=== PATIENT | male | born 1945 | race Caucasian/White ===

== ENCOUNTER 2018-12-21 13:12 | Inpatient (IN) ==
[2018-12-21] MEDS ORDERED: LASIX IV ONE (16:16)
[2018-12-21 16:49] LABS: BASO# 0.01 X1000 (0.0-0.2); BASO% 0.2 % (0.0-0.8); EOS# 0.01 X1000 (0.0-0.7); EOS% 0.2 % (0.0-10.0); HEMATOCRIT 26.5 % (42.0-52.0); IMM GRAN# 0.03 X1000 (0.0-0.04); IMM GRAN% 0.6 % (0.0-0.5); LYMPH# 0.96 X1000 (1.2-3.4); LYMPH% 18.7 % (20.5-51.1); MCH 27.9 PG (27-31); MCHC 30.2 g/dL (33-37); MCV 92.3 FL (81-99); MONO# 0.41 X1000 (0.11-0.59); MPV 10.4 FL (7.4-10.4); NEUT# 3.71 X1000 (1.4-6.5); NEUT% 72.3 % (42.2-75.2); PLT 143 X1000 (130-400); RBC 2.87 XMIL (4.7-6.1); RDW 15.5 % (11.5-14.5); WBC 5.13 X1000 (4.8-10.8)
[2018-12-21 17:12] LABS: INR 1.27; PROTIME 16.9 Seconds (11.0-16.0)
[2018-12-21 17:19] LABS: ALB/GLOB RATIO 1.1; ALBUMIN 3.5 g/dL (3.5-5.0); CALCIUM 9.6 mg/dL (8.8-10.2); MAGNESIUM 2.2 mg/dL (1.5-2.7); PHOSPHORUS 5.6 mg/dL (2.7-4.5); POTASSIUM 5.5 mmol/L (3.5-5.1); TOTAL BILIRUBIN 0.19 mg/dL (0.20-1.00); TOTAL PROTEIN 6.6 g/dL (6.3-8.3)
[2018-12-21] MEDS ORDERED: D50W SYRINGE ONE ×2 (17:35→17:36)
[2018-12-21] MEDS ORDERED: XYLOCAINE 2% JELLY UROJECT TOP ONE (17:42)
[2018-12-21] MEDS ORDERED: D50W SYRINGE IV ONE (18:12)
--- NOTE | 2018-12-21 18:55 | HISTORY AND PHYSICAL ---
HISTORY OF PRESENT ILLNESS: This is a 73-year-old patient of Dr. Shant Brock. Also followed by Dr. Paulina Sainz, developed lymphoma. Found lymphoma I think in his groin with lymph nodes in September 2017 and then started chemo in October 2017. In February, he had a PET scan and it looked like he was disease-free. In July they found recurrence came back in the groin. I think previous he had received chemotherapy and now he is on experimental therapy. He is on a trial study, but he has lymphoma in his abdomen and his pelvis and he has noticed over the last month or so slow increased swelling in his lower extremities up to his thigh and in his belly. He noticed that his scrotum is swelling and it has been harder for him to void and really could not pass his water in the last 12 hours or so. Presented to the emergency room. He denies fever, chills, gross hematochezia. No abdominal pain. He is not aware of any significant weight gain or loss, although he has had weight fluctuation. He is still eating by his report. PAST MEDICAL HISTORY: Other significant past medical history, hypercholesterolemia, hypertension. He has a history of atrial fibrillation and he has diabetes mellitus type 2. PAST SURGICAL HISTORY: Surgeries, I think he has had an appendectomy, and he has had his gallbladder out. He has had a colonoscopy. He had a laparoscopic cholecystectomy and left nephrectomy. 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 He also has some osteoarthritis. ALLERGIES: Allergic to antihistamines. Gave him trouble with urinary void. SOCIAL HISTORY: Negative for alcohol. Negative for tobacco. FAMILY HISTORY: He reports no history of heart, kidney disease, leukemia or lymphoma. REVIEW OF SYSTEMS: General: He does not report any weight gain or loss. He is not sure, he has been following his weight at the clinic and it has fluctuated, but he has not noticed any dramatic weight loss. In fact, he has noticed some weight gain that he thinks is related to fluid in the last couple visits. HEENT: No change in hearing or visual acuity. He is hard of hearing. I think he does wear a hearing aid. Neck: No complaints of neck pain. Lymphatic: No increased adenopathy in his neck, groin or axilla that he is aware of. But definitely increased lymph nodes in the groin. Increased swelling in his lower extremities and belly consistent with some anasarca. Respiratory: No increased work of breathing or dyspnea. Cardiovascular: No chest pain or tachy palpitation. Gastrointestinal and Genitourinary: No gross hematuria, dysuria. Musculoskeletal: No focal complaints. Neurologic: No focal complaints. Endocrinologic and Hematologic: No significant history. MEDICATIONS: At home, he is on fenofibrate 145 mg a day. Lasix 40 mg twice a day. Gabapentin 300 mg b.i.d. Glimepiride 4 mg b.i.d., Victoza 1.2 mg subcutaneous daily. Glucophage 850 mg a day. Lopressor 50 mg a day. Pravachol 40 mg a day, Xarelto 20 mg a day. Janumet XR 100/1000, one a day and Hytrin 5 mg daily. PHYSICAL EXAM: GENERAL: Well-developed, well-nourished, alert, oriented x3. VITAL SIGNS: Temperature is 97.3, pulse 80, respirations 18, blood pressure 145/72, O2 saturation 93%. EYES: Pupils are equal and round. Conjunctiva pink. NECK: CVP less than 6 cm. Supple. No cervical, supraclavicular adenopathy that I can appreciate. LUNGS: Clear in all lung colindres anterior, lateral and posterior. CARDIOVASCULAR: Regular rhythm and rate without murmur or S3. ABDOMEN: Soft, but it does feel like it has some fluid. Cannot tell if it is ascites. Do not really appreciate shifting fluid level. He has adenopathy and groin swelling in the scrotum, generalized swelling, lymphedema, really from his belly all the way down to his feet with some bullae in the lower extremities. Weight is 262 pounds, O2 saturation 93%. NEUROLOGICALLY: No focal deficits. LAB: White count 5130, hematocrit 26, hemoglobin is 8. Platelet count 143,000. Sodium 142, potassium 5.0, chloride 105, bicarb 22, BUN 91, creatinine 6.0. Blood sugar 42. Calculated osmolality 308, phosphorus 5.6, magnesium was 2.2. AST 16, ALT was 9, alkaline phosphatase was 26, albumin 3.5. ProTime 16.9, PTT is 41. ASSESSMENT AND PLAN: 1. Lymphoma. Recurrent lymphoma. He is on experimental therapy at [facility] and goes down every other week. Have increased anasarca, increased swelling and he has inability to void. Dr. James Payne is going to try to come in and put a Vee catheter in. We will put him on some Flomax. I will try and diurese him with some Lasix, give him 40 mg IV Lasix q.8 and see. We will watch his electrolytes closely including his magnesium and potassium. We will check a thyroid, B12 and folate and his cortisol level in the morning. 2. Inability to void. As above. Suspect this is from the swelling. I will put him on some Flomax and discuss with Dr. Payne if we need to add anything else. He is already on Hytrin. 3. Diabetes mellitus type 2. His sugar was low coming in, so right now, I am going to hold his Janumet and his metformin, and we will check pattern sugars. 4. History of hypercholesterolemia and hypertriglyceridemia. Continue his fenofibrate. 5. He has history of atrial fibrillation, put him on a monitor. It appears his rate is well controlled. We will continue the Xarelto 20 mg a day. 6. Regarding lymphoma, will see Dr. Sainz. Will inform of his admission and see if she has any suggestions. cc: Win Camarillo MD
[2018-12-21] MEDS: FLOMAX PO SCH (19:00)
[2018-12-21] MEDS ORDERED: ZOFRAN IV PRN (19:13)
[2018-12-21] MEDS ORDERED: TYLENOL PO PRN (19:13)
--- NOTE | 2018-12-21 19:23 | Diag Imaging Result Doc PS360 ---
EXAM: CHEST-2 VIEWS HISTORY: edema TECHNIQUE: Chest two views COMPARISON: 09/13/2013 FINDINGS: There is a right-sided portacatheter. No pneumothorax. There are small pleural effusions. Heart is enlarged. No consolidation. IMPRESSION: Cardiomegaly with small pleural effusions. Electronically signed by Zane Johnson 12/21/2018 7:21 PM
--- NOTE | 2018-12-21 19:26 | Diag Imaging Result Doc PS360 ---
EXAM: US SCROTUM HISTORY: scrotal swelling TECHNIQUE: Scrotal ultrasound COMPARISON: None. FINDINGS: There is a moderate to large right-sided hydrocele with a small left-sided hydrocele. Scrotal skin thickening is present. No testicular mass. Normal blood flow to the testicles. There is epididymal prominence bilaterally. IMPRESSION: Possible epididymitis. There are also hydroceles and scrotal skin thickening. Electronically signed by Zane Johnson 12/21/2018 7:24 PM
--- NOTE | 2018-12-21 19:39 | CONSULTATION ---
DATE OF CONSULTATION: 12/21/2018 REFERRING PHYSICIAN: Emergency room. HISTORY OF PRESENT ILLNESS: This 73-year-old male has a history of recurrent lymphoma. He states that over the last week he has had increasing swelling in his legs and over the last several days scrotum. He came to the emergency room and attempts were made to place a Vee catheter. These were not successful. The patient states he is on Hytrin that helps him void but no other medication for his prostate. He denies any surgery on his prostate. 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 He states he was told he had kidney stones in that kidney. He states he has never had other episodes of kidney stones. He has no problems with urinary tract infections. He has had no hematuria. PAST MEDICAL HISTORY: Lymphoma, hypertension, diabetes, elevated cholesterol. CURRENT MEDICATIONS: Documented on the chart. PAST SURGICAL HISTORY: Right nephrectomy, cholecystectomy, lower back surgery, wisdom teeth extraction, lymph node biopsy. SOCIAL HISTORY: He denies tobacco or alcohol use. He lives with his in [place]. ALLERGIES: He is allergic to Rosenda. REVIEW OF SYSTEMS: He states usually he is in good health. He states he recently started a new type of chemotherapy for his lymphoma in [place]. He denies any chest pains, heart disease, strokes, seizures, pulmonary, or bowel problems. PHYSICAL EXAMINATION: General: A mildly obese, age apparent, normally developed, white male, oriented in all ways and cooperative. He is somewhat hard of hearing. HEENT: Normal for age. Lungs: Clear. Cardiovascular: Regular rate and rhythm. Abdomen: Obese, soft. There is protuberance in the suprapubic area when palpated that causes increased discomfort and feelings of needing to void. : Uncircumcised male with phimosis and significant penile and scrotal edema. The testes are not palpable. No inguinal hernias. Rectal: Deferred. Extremities: +2 [address] the [address] up into the thighs. No cyanosis or clubbing. Neurologic: No focal deficits. LABORATORY EVALUATION: He has a white count of 5.13, hemoglobin 8.0, hematocrit 26.5 and platelets are 143,000. Serum electrolytes have a sodium 142, potassium 5.5, chloride 105, bicarb 22, BUN 91, creatinine 6.0. IMPRESSION: 1. Urinary retention. 2. Enlarged prostate. 3. Lymphoma. PLAN: 1. The patient was prepped and draped sterilely for Vee catheterization. 20 mL of 2% viscous lidocaine was placed in the patient's urethra. 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 The viscous lidocaine was held in place for 5 minutes. The tip of the syringe that held the lubricant was used to push through the fossa navicularis stricture. The tip of the 18-Dutch Coude catheter was then used to completely dilate the strictured area and with some pushing was able to push the catheter through the urethra, prostate and into the bladder. After the catheter went in the bladder, immediate return of clear urine returned. 10 mL of sterile water were placed in the Vee's balloon. Some of the urine was sent for urinalysis. The Vee was placed to gravity drain. He tolerated this procedure well. 2. Will add Flomax to his medication regimen. Thank you for this consultation. cc: MD Arsh Mejia MD
[2018-12-21 20:01] LABS: URINE SOURCE CATH
[2018-12-21 20:10] LABS: BILIRUBIN URINE NEGATIVE (NEGATIVE); BLOOD URINE TRACE (NEGATIVE); COLOR YELLOW; GLUCOSE URINE NEGATIVE (NEGATIVE); KETONE URINE NEGATIVE (NEGATIVE); LEUKOCYTES URINE NEGATIVE (NEGATIVE); NITRITE URINE NEGATIVE (NEGATIVE); PROTEIN URINE NEGATIVE (NEGATIVE); SP GRAVITY URINE 1.006; TURBIDITY URINE CLEAR (CLEAR); UROBILINOGEN URINE NORMAL (NORMAL)
[2018-12-21 20:12] LABS: UR EPITHELIAL CELLS <10 /HPF (<10); URINE BACTERIA NEGATIVE /HPF; URINE RBC <10 /HPF (<10); URINE WBC <10 /HPF (<10)
[2018-12-21] MEDS: LASIX IV SCH (20:36)
[2018-12-21] MEDS: NS 1,000 ML IV SCH (20:46)
[2018-12-21] MEDS: NEURONTIN PO SCH (21:47)
--- NOTE | 2018-12-21 21:58 | PROVIDER DOCUMENTATION ---
This chart was entered by Mindy Solis Scribe, acting as scribe for Bonifacio Lucero MD. HPI-Male Problem - General Chief Complaint: Male Stated Complaint: FLUID BUILD UP Time Seen by Provider: 12/21/18 15:38 Source: patient Allergies/Adverse Reactions: Patient Allergies Allergy/AdvReac Type Severity Reaction Status Date / Time fexofenadine HCl * Allergy Mild RENAL Verified 12/21/18 17:06 [From Rosenda] FAILURE Home Medications: Home Medication List Medication Instructions Recorded Confirmed Last Taken Type Gabapentin 300 mg PO BID 09/18/17 12/21/18 08/03/18 08:30 History Glimepiride 4 mg PO BID 09/18/17 12/21/18 08/03/18 08:30 History Liraglutide [Victoza] 1.2 mg SUBQ DAILY 09/18/17 12/21/18 08/02/18 19:00 History Metformin [Glucophage] 850 mg PO DAILY 09/18/17 12/21/18 08/02/18 19:00 History Metoprolol [Lopressor] 50 mg PO DAILY 09/18/17 12/21/18 08/03/18 08:30 History PRAVAstatin [Pravachol] 40 mg PO DAILY 09/18/17 12/21/18 08/02/18 19:00 History Rivaroxaban [Xarelto] 20 mg PO DAILY 09/18/17 12/21/18 08/02/18 19:00 History Sitagliptin Phos/Metformin HCl 1 each PO DAILY 09/18/17 12/21/18 08/03/18 08:30 History [Janumet Xr 100-1,000 mg Tablet] Terazosin [Hytrin] 5 mg PO DAILY 09/18/17 12/21/18 08/02/18 19:00 History Fenofibrate Nanocrystallized 145 mg PO DAILY 12/21/18 12/21/18 Unknown History [Fenofibrate] Furosemide [Lasix] 40 mg PO BID 12/21/18 12/21/18 Unknown History - History of Present Illness-Male Nature of Presenting Problem: 73yom with hx of lymphoma, diabetes, and renal disease c/o scrotal swelling, difficulty urinating since yesterday and weight gain in the past two weeks. He reports he has completed chemotherapy and is now in a clinical trial for metastatic lymphoma. He reports his usual weight is around 236lbs-238lbs. He reports he currently weighs 262lbs. The patient's family members are at bedside. Location of Complaint: reports: scrotal Radiation: reports: none Quality of Pain: reports: pressure Severity in ED: reports: mild Onset/Duration: reports: 24 hours ago (yesterday), other (2 weeks) Timing: reports: still present, constant Context/Activities at Onset: reports: none Urinary Symptoms: reports: other (difficulty urinating) Associated Symptoms: reports: other (scrotal swelling, difficulty urinating). denies: fever/chills Similar Symptoms Previously?: No Recently seen or treated by another doctor?: No Review of Systems - Adult - REVIEW OF SYSTEMS - ADULT Constitutional: denies: chills, fever Eyes: denies: discharge, dry eyes Ears, Nose, Mouth & Throat: denies: ear discharge, ear pain Cardiovascular: denies: chest pain, palpitations Respiratory: denies: cough, shortness of breath Gastrointestinal: denies: abdominal pain, diarrhea, nausea, vomiting Genitourinary: reports: other (scrotal swelling, difficulty urinating). denies : hematuria Musculoskeletal: denies: back pain, muscle aches, muscle weakness Integumentary: reports: no symptoms reported Neurological: denies: dizziness/vertigo, headache/migraines Psychiatric: reports: no symptoms reported Endocrine: reports: no symptoms reported Hematologic/Lymphatic: reports: no symptoms reported Allergic/Immunologic: reports: no symptoms reported All Other Systems: Reviewed and Negative Past History - Adult - PAST MEDICAL HISTORY-ADULT Review of Records: reports: Old Records Reviewed, Nursing Assessment Review, Medications Reviewed Cardiovascular: reports: A-Fib, HTN Respiratory: reports: sleep apnea Genitourinary: reports: other (enlarged prostate) Endocrine/Immune: reports: Diabetes, Lymphoma Other Conditions: reports: cataract/glaucoma, other (DVT) - PRIOR SURGERIES/PROCEDURES Surgical/Procedure History: reports: cholecystectomy, back/neck (back), other ( L nephrectomy, cataract removal) - IMMUNIZATION STATUS Childhood Immunizations: See Nurse Assessment Flu Vaccine: See Nurse Assessment - FAMILY HISTORY Family History: reviewed, not pertinent - SOCIAL HISTORY Smoking: non-smoker Substance Use: denies Living Situation: family Physical Exam-General - PHYSICAL EXAM-ADULT Initial Vital Signs Reviewed: Yes - CONSTITUTIONAL General Appearance: alert, no apparent distress, other (pt appears pale) - EYES Eyes: PERRL/EOMI, pink conjunctivae - NECK Neck: non-tender, supple - RESPIRATORY Respiratory: chest non-tender, lungs clear, normal breath sounds, no pleuratic chest pain, no respiratory distress, no accessory muscle use - CARDIOVASCULAR Cardiovascular: regular rate, rhythm, no murmur - GASTROINTESTINAL (ABDOMEN) Abdominal Exam: soft, distended, other (tymphanic) - GENITOURINARY Male Genitalia: scrotal swelling (significant). negative: erythema - MUSCULOSKELETAL Extremity: non-tender, pedal edema (2+), other (2+ edema extends from bilateral lower extremities to hips) - SKIN Integumentary: warm/dry, pallor - NEUROLOGIC Neurologic: grossly normal, no motor/sensory deficits - PSYCHIATRIC Psych/Mental Status: normal mood/affect, normal thought content, normal thought process, oriented x 3 Progress - PLAN OF CARE/RESULTS Progress/Plan/Lab Results: Vital Signs - 8 hr 12/21/18 17:00 12/21/18 17:02 12/21/18 18:01 Pulse Rate 83 72 Respiratory Rate 18 19 Blood Pressure 145/72 149/73 O2 Sat by Pulse Oximetry 92 L 93 L 90 L Laboratory Results - last 24 hr 12/21/18 12/21/18 12/21/18 16:29 16:29 16:29 WBC 5.13 RBC 2.87 L Hgb 8.0 L Hct 26.5 L MCV 92.3 MCH 27.9 MCHC 30.2 L RDW Std Deviation 15.5 H Plt Count 143 MPV 10.4 Immature Gran % (Auto) 0.6 H Neut % (Auto) 72.3 Lymph % (Auto) 18.7 L [place] % (Auto) 8.0 Eos % (Auto) 0.2 Baso % (Auto) 0.2 Immature Gran # (Auto) 0.03 Neut # (Auto) 3.71 Lymph # (Auto) 0.96 L [place] # (Auto) 0.41 Eos # (Auto) 0.01 Baso # (Auto) 0.01 PT INR PTT (Actin FS) 41.9 H Sodium 142 Potassium 5.5 H Chloride 105 Carbon Dioxide 22 L Anion Gap 15 BUN 91 H Creatinine 6.0 H Estimated GFR/1.73 m2 9 BUN/Creatinine Ratio 15 Glucose 42 L POC Glucose Calculated Osmolality 308 Calcium 9.6 Phosphorus 5.6 H Magnesium 2.2 Total Bilirubin 0.19 L AST 16 ALT 9 L Alkaline Phosphatase 26 L Total Protein 6.6 Albumin 3.5 Globulin 3.1 Albumin/Globulin Ratio 1.1 Urine Source Urine Color Urine Turbidity Urine pH Ur Specific [place] Urine Protein Ur Glucose (Stick) Ur Ketones (Stick) Urine Blood Urine Nitrite Urine Bilirubin Urobilinogen Dipstick Urine Leukocytes Urine WBC (Auto) Urine RBC (Auto) U Epithel Cells (Auto) Urine Bacteria (Auto) 12/21/18 12/21/18 12/21/18 16:29 17:34 18:10 WBC RBC Hgb Hct MCV MCH MCHC RDW Std Deviation Plt Count MPV Immature Gran % (Auto) Neut % (Auto) Lymph % (Auto) [place] % (Auto) Eos % (Auto) Baso % (Auto) Immature Gran # (Auto) Neut # (Auto) Lymph # (Auto) [place] # (Auto) Eos # (Auto) Baso # (Auto) PT 16.9 H INR 1.27 PTT (Actin FS) Sodium Potassium Chloride Carbon Dioxide Anion Gap BUN Creatinine Estimated GFR/1.73 m2 BUN/Creatinine Ratio Glucose POC Glucose 33 L Calculated Osmolality Calcium Phosphorus Magnesium Total Bilirubin AST ALT Alkaline Phosphatase Total Protein Albumin Globulin Albumin/Globulin Ratio Urine Source CATH Urine Color YELLOW Urine Turbidity CLEAR Urine pH 5.0 Ur Specific [place] 1.006 Urine Protein NEGATIVE Ur Glucose (Stick) NEGATIVE Ur Ketones (Stick) NEGATIVE Urine Blood TRACE A Urine Nitrite NEGATIVE Urine Bilirubin NEGATIVE Urobilinogen Dipstick NORMAL Urine Leukocytes NEGATIVE Urine WBC (Auto) <10 Urine RBC (Auto) <10 U Epithel Cells (Auto) <10 Urine Bacteria (Auto) NEGATIVE 12/21/18 18:33 WBC RBC Hgb Hct MCV MCH MCHC RDW Std Deviation Plt Count MPV Immature Gran % (Auto) Neut % (Auto) Lymph % (Auto) [place] % (Auto) Eos % (Auto) Baso % (Auto) Immature Gran # (Auto) Neut # (Auto) Lymph # (Auto) [place] # (Auto) Eos # (Auto) Baso # (Auto) PT INR PTT (Actin FS) Sodium Potassium Chloride Carbon Dioxide Anion Gap BUN Creatinine Estimated GFR/1.73 m2 BUN/Creatinine Ratio Glucose POC Glucose 149 H D Calculated Osmolality Calcium Phosphorus Magnesium Total Bilirubin AST ALT Alkaline Phosphatase Total Protein Albumin Globulin Albumin/Globulin Ratio Urine Source Urine Color Urine Turbidity Urine pH Ur Specific [place] Urine Protein Ur Glucose (Stick) Ur Ketones (Stick) Urine Blood Urine Nitrite Urine Bilirubin Urobilinogen Dipstick Urine Leukocytes Urine WBC (Auto) Urine RBC (Auto) U Epithel Cells (Auto) Urine Bacteria (Auto) Orders Category Date Time [facility] Routine AdmDCTranf 12/21/18 19:13 Active Activity - Up with Assistance ORDERED Care 12/21/18 19:13 Active Apply Mechanical Device [QM] ORDERED Care 12/21/18 19:13 Active Bladder Scan and Record Result ORDERED Care 12/21/18 15:57 Active DVT/PE Risk Assess/Protocol [QM] ORDERED Care 12/21/18 19:13 Active FSBS/Accucheck Result AC + HS Care 12/21/18 19:13 Active Vee Cath Insertion ORDERED Care 12/21/18 16:16 Active Intake and Output-Strict ORDERED Care 12/21/18 19:13 Active Nursing- MD Consult Request ROUTINE Care 12/21/18 19:13 Active Resuscitation Status Routine Care 12/21/18 17:37 Ordered Saline Loc NOW Care 12/21/18 15:57 Active Vital Signs Order Q 8-HR ASSESS Care 12/21/18 19:13 Active Z-Document. for Tele Applied ORDERED Care 12/21/18 19:13 Active Physician/Provider Consults Routine Cons 12/21/18 19:13 Ordered Physician/Provider Consults Routine Cons 12/21/18 19:13 Ordered Diabetic Diet Diet 12/21/18 19:13 Active CHEST-2 VIEWS [RAD] Stat Exams 12/21/18 16:15 Completed US SCROTUM [US] Stat Exams 12/21/18 15:57 Completed CBC WITH DIFF [HEME] Routine Lab 12/22/18 06:00 Ordered CBC WITH ELECTRONIC DIFF [HEME] Stat Lab 12/21/18 16:29 Completed CK PROFILE [SP CHEM] Routine Lab 12/22/18 06:00 Ordered COMPREHENSIVE METABOLIC PANEL [CHEM] Routine Lab 12/22/18 06:00 Ordered COMPREHENSIVE METABOLIC PANEL [CHEM] Stat Lab 12/21/18 16:29 Completed MAGNESIUM [CHEM] Stat Lab 12/21/18 16:29 Completed PHOSPHORUS [CHEM] Stat Lab 12/21/18 16:29 Completed PROTIME WITH INR [COAG] Routine Lab 12/22/18 06:00 Ordered PROTIME WITH INR [COAG] Stat Lab 12/21/18 16:29 Completed PTT [COAG] Routine Lab 12/22/18 06:00 Ordered PTT [COAG] Stat Lab 12/21/18 16:29 Completed TROPONIN T Routine Lab 12/21/18 20:07 Completed TSH Routine Lab 12/22/18 06:00 Ordered UA NIMS W/REFLEX CULT [URINALYSIS] Routine Lab 12/21/18 18:10 Completed 0.9% Sodium Chloride Inj [Ns] 1,000 ml Med 12/21/18 19:13 Active IV 25 mls/hr Acetaminophen [Tylenol] Med 12/21/18 19:13 Active 650 mg PO Q6H PRN PRN Dextrose 50% Syringe [D50w Syringe] Med 12/21/18 18:12 Discontinued 100 ml IV NOW ONE Dextrose 50% Syringe [D50w Syringe] Med 12/21/18 17:35 Discontinued 50 ml .ROUTE .STK-MED ONE Dextrose 50% Syringe [D50w Syringe] Med 12/21/18 17:36 Discontinued 50 ml .ROUTE .STK-MED ONE Fenofibrate [Tricor] Med 12/22/18 09:00 Active 145 mg PO DAILY Furosemide [Lasix] Med 12/21/18 19:13 Active 40 mg IV Q8H Furosemide [Lasix] Med 12/21/18 16:16 Discontinued 80 mg IV NOW ONE Gabapentin [Neurontin] Med 12/21/18 21:00 Active 300 mg PO BID Lidocaine 2% Jelly Appl [Xylocaine 2% Jelly Uroject] Med 12/21/18 17:42 Discontinued 1 ml TOP NOW ONE Metoprolol [Lopressor] Med 12/22/18 09:00 Active 50 mg PO DAILY Omeprazole [Prilosec] Med 12/22/18 09:00 Active 40 mg PO DAILY Ondansetron [Zofran] Med 12/21/18 19:13 Active 4 mg IV Q4H PRN PRN PRAVAstatin [Pravachol] Med 12/22/18 09:00 Active 40 mg PO DAILY Rivaroxaban [Xarelto] Med 12/22/18 09:00 Active 20 mg PO DAILY Terazosin [Hytrin] Med 12/22/18 09:00 Active 5 mg PO DAILY Telemetry [OM.EQ] Routine Oth 12/21/18 19:13 Active EKG [EKG] Stat Ther 12/21/18 19:13 Ordered Transfer/Admit Order [TRANSFER] Routine Transfer 12/21/18 17:36 Completed A/P: Edema, ascites. will admit for fluid dieresis. Pt has hx of metastatic lymphoma. Result Diagrams: 12/21/18 16:29 12/21/18 16:29 - CONSULTS/PCP/HOSPITALIST Notification #1 *Consult/PCP/Hospitalist*: Dr. Payne, Urology Time Discussed: 17:05 Consult Disposition: Will see in ED #2 Consult: Dr. Camarillo, Hospitalist Time Discussed: 17:06 Consult Disposition: Will see in ED Departure - Departure Date of Disposition Decision: 12/21/18 Time of Disposition Decision: 21:57 DIAGNOSIS: Ascites Disposition: ADMITTED INPATIENT 09 Certified Medical Emergency: Emergent Condition: Stable - Critical Care Note This patient required my direct & personal management of CC.: No Attestation - Physician/ PRICILLA Attestation Patient care was provided by Advanced Practice Provider:: No The physician spent face to face time with patient:: Yes Advanced Practice Provider documentation review:: Supervising physician onsite and consulted in the evaluation and care of this patient. The physician did have a face to face encounter with the patient. This chart was documented by the indicated scribe, (Mindy Solis, Katinaibmely) and accurately reflects the services I performed and decisions made by me, Bonifacio Lucero MD, as attested by the provider's signature.
[2018-12-22] MEDS: LASIX IV SCH (04:20)
[2018-12-22 06:19] LABS: INR 1.18; PROTIME 15.9 Seconds (11.0-16.0)
[2018-12-22 06:20] LABS: PTT 40.1 Seconds (22.3-41.8)
[2018-12-22 06:27] LABS: BASO# 0.01 X1000 (0.0-0.2); BASO% 0.2 % (0.0-0.8); EOS# 0.01 X1000 (0.0-0.7); EOS% 0.2 % (0.0-10.0); HEMATOCRIT 24.5 % (42.0-52.0); HEMOGLOBIN 7.4 g/dL (14.0-18.0); LYMPH# 0.53 X1000 (1.2-3.4); LYMPH% 11.1 % (20.5-51.1); MCH 28.1 PG (27-31); MCHC 30.2 g/dL (33-37); MCV 93.2 FL (81-99); MONO# 0.37 X1000 (0.11-0.59); MONO% 7.8 % (1.7-9.3); NEUT# 3.84 X1000 (1.4-6.5); NEUT% 80.7 % (42.2-75.2); PLT 147 X1000 (130-400); RBC 2.63 XMIL (4.7-6.1); RDW 15.6 % (11.5-14.5); WBC 4.76 X1000 (4.8-10.8)
[2018-12-22 06:51] LABS: ALB/GLOB RATIO 1.5; ALBUMIN 3.5 g/dL (3.5-5.0); CALCIUM 9.6 mg/dL (8.8-10.2); CREATININE 6.3 mg/dL (0.7-1.2); POTASSIUM 5.6 mmol/L (3.5-5.1); TOTAL BILIRUBIN 0.21 mg/dL (0.20-1.00); TOTAL PROTEIN 5.9 g/dL (6.3-8.3)
[2018-12-22] MEDS ORDERED: XARELTO PO SCH (09:00)
[2018-12-22] MEDS ORDERED: FLOMAX PO SCH (09:00)
[2018-12-22] MEDS ORDERED: TRICOR PO SCH (09:00)
[2018-12-22] MEDS: FLOMAX PO SCH (09:09)
[2018-12-22] MEDS: LOPRESSOR PO SCH (09:10)
[2018-12-22] MEDS: HYTRIN PO SCH (09:10)
[2018-12-22] MEDS: PRILOSEC PO SCH (09:10)
[2018-12-22] MEDS: NEURONTIN PO SCH ×2 (09:10→20:34)
[2018-12-22] MEDS: PRAVACHOL PO SCH (09:10)
[2018-12-22] MEDS ORDERED: LASIX 200 MG in NS 25 ML IV SCH (11:00)
[2018-12-22] MEDS ORDERED: LASIX IV SCH (11:00)
--- NOTE | 2018-12-22 11:30 | PROGRESS NOTE ---
DATE: 12/22/2018 HISTORY: Mr. Manuel Good was admitted to [facility] with acute renal failure. His BUN and creatinine were 91 and 6.0 on admission. His BUN and creatinine were 89 and 6.3 this morning. He has had improved urine output after placement of a Vee catheter. He is currently undergoing clinical trials at [facility] for his underlying lymphoma. They have given him Lasix throughout the night and he reports that he has less swelling in his abdomen. He still has significant edema and scrotal edema. The blood pressure is stable. He denies any chest pain, palpitations, or anginal equivalents. PHYSICAL EXAMINATION: Vital Signs: He is afebrile. Pulse 67, respirations 20, BP 120/53. CV: Regular rate and rhythm. Lungs: Faint crackles in the bases bilaterally. Abdomen: Soft, nontender, with active bowel sounds. : He has significant scrotal edema. Extremities: He has 3+ pitting edema in the lower extremities bilaterally. ASSESSMENT AND PLAN: 1. Acute renal failure. He had not been able to void in [address] Payne was able to put in a catheter with some urine output. His renal function has actually declined since placement of the Vee. Given the worsening renal function, mild acidosis, and hyperkalemia, I believe that potentially he would benefit from dialysis. I have consulted Dr. Javier. I spoke to Dr. Javier this morning. Dr. Javier is going to arrange for a noncontrasted CT scan of the abdomen and pelvis to make sure there is no obvious obstruction of the kidneys due to lymphoma, give him high-dose Lasix, and if there is no improvement, will certainly consider the possibility of dialysis. 2. Hypertension. His blood pressure is stable. We will continue his current regimen of medication. cc: Arsh Brock MD
--- NOTE | 2018-12-22 13:44 | Diag Imaging Result Doc PS360 ---
EXAM: CT ABDOMEN/PELVIS W/O CONTRAST - 12/22/2018 HISTORY: decreased renal function TECHNIQUE: CT abdomen/pelvis without contrast. No contrast administered per request of the referring provider. COMPARISON: 02/19/2012 FINDINGS: There are bilateral pleural effusions. There is been left nephrectomy similar to prior. There has been interval cholecystectomy. There is mild right hydronephrosis. There is no renal stone identified. There is a large mass/adenopathy and the right iliac region. There is right inguinal adenopathy. These were not present on the prior exam. The mild right hydronephrosis presumably relates to compression or invasion of the mid to distal right ureter by the right iliac region mass/adenopathy. There is apparent chronic mesenteric adenopathy with haziness of the central mesentery, similar to prior. Allowing for this, there is no definite pancreatic inflammation identified. There is no pancreatic mass identified. There are no acute abnormalities of the liver, spleen, or adrenal glands identified. There is no evidence of bowel obstruction. There is colonic diverticulosis which is most prominent at the sigmoid. There is no indication of diverticulitis. There is no free air, substantial free fluid, or abscess identified. There is a Vee catheter in the urinary bladder. IMPRESSION: Large mass/adenopathy. Right iliac region. Mild right hydronephrosis which apparently relates to compression or invasion of the mid to distal right ureter by the right iliac mass/adenopathy. Right inguinal adenopathy. Chronic mesenteric adenopathy with haziness of central mesentery. Uncomplicated colonic diverticulosis. No bowel obstruction. This exam was performed using automated exposure control, adjustment of mA or kV according to patient size, and/or use of iterative reconstruction technique. Electronically signed by Gómez Sunshine 12/22/2018 1:42 PM
--- NOTE | 2018-12-22 14:54 | NEPHROLOGY CONSULTATION ---
DATE: 12/22/2018 NEPHROLOGY CONSULTATION: REASON FOR CONSULTATION: Acute kidney injury. HISTORY OF PRESENT ILLNESS: Mr. Good is a 73-year-old white male with history of lymphoma for which he is undergoing active treatment at [facility]. He is on a research protocol. He states he has labs done regularly and that they have been good except at his last visit he was told that he was "a little dehydrated." He came to the hospital because of 1 week of worsening lower extremity swelling and scrotal and foreskin swelling with difficulty voiding. Because of these worsening symptoms, he ultimately had to come to the hospital. He has a history of solitary kidney. He had surgical nephrectomy on the left in the past because of stones and obstruction. PAST MEDICAL HISTORY: As above. He also has a history of diabetes, hypertension, obesity, atrial fibrillation, hyperlipidemia. HOME MEDICATIONS: Include gabapentin, glimepiride, Victoza, metformin, metoprolol, pravastatin, rivaroxaban, sitagliptin, terazosin, fenofibrate, furosemide. ALLERGIES: Fexofenadine. SOCIAL HISTORY: He is and lives with his . FAMILY HISTORY: Otherwise noncontributory. REVIEW OF SYSTEMS: Otherwise noncontributory. PHYSICAL EXAMINATION: Vital Signs: Blood pressure 126/57, heart rate 70, respirations 20, afebrile. General: No acute distress. Skin: Warm and dry. HEENT: Conjunctivae are pink. Neck: Neck veins are not distended. Heart: Regular. No gallops. Lungs: Equal. No crackles. Abdomen: Obese, soft, and nontender. Bowel sounds are present. Extremities: Have 3+ edema. No clubbing or cyanosis. Scrotal and foreskin swelling are still present. IMPRESSION AND RECOMMENDATIONS: Acute kidney injury with modest hyperkalemia. CT of the abdomen shows probable obstruction in the mid right ureter secondary to adenopathy. He had a Vee catheter placed today. I will discuss his CT results with Dr. [place] Payne. His metformin has been appropriately withheld. No other changes. We will follow. cc: MD Arsh Adams MD
[2018-12-22] MEDS: XARELTO PO SCH (20:35)
[2018-12-22] MEDS: NS 1,000 ML IV SCH (20:36)
[2018-12-22] MEDS: NORCO-5 PO PRN (22:30)
[2018-12-23] MEDS ORDERED: LASIX IV ONE (07:28)
[2018-12-23 07:38] LABS: HEMATOCRIT 22.4 % (42.0-52.0); HEMOGLOBIN 6.9 g/dL (14.0-18.0); MCHC 30.8 g/dL (33-37); MCV 94.1 FL (81-99); MPV 10.3 FL (7.4-10.4); RBC 2.38 XMIL (4.7-6.1); WBC 4.37 X1000 (4.8-10.8)
[2018-12-23 07:49] LABS: CALCIUM 9.5 mg/dL (8.8-10.2); CREATININE 6.7 mg/dL (0.7-1.2); POTASSIUM 5.4 mmol/L (3.5-5.1)
--- NOTE | 2018-12-23 08:28 | PROGRESS NOTE ---
DATE: 12/23/2018 SUBJECTIVE: Mr. Good was admitted to [facility] with acute renal failure. Renal function continues to deteriorate this morning. His BUN and creatinine were [address] scan of the abdomen and pelvis without contrast demonstrated mild right hydronephrosis. There is a large mass adenopathy in the right iliac region. There is compression of the mid to distal right ureter in the right iliac region. He is scheduled for stent placement today. OBJECTIVE: Blood pressure remains stable. Systolic blood pressures are ranging from 110 to 126 whereas his diastolic blood pressures have been in the 50s. He denies any chest pain, palpitations, or anginal equivalents. Temperature 97.9 degrees, pulse 70 and BP 126/57.CV: Regular rate and rhythm. Lungs: Clear. Abdomen: Soft and nontender with active bowel sounds. ASSESSMENT AND PLAN: 1. Acute renal failure. He does have a solitary kidney. His BUN is 89 and 6.7. He does have external compression of the right ureter due to lymphadenopathy and a mass. Dr. Payne is planning to take him to the OR today for stent placement. 2. Anemia. His hemoglobin and hematocrit were 6.9 and 22.4 this morning. He is hemodynamically stable. Because of the volume overload with the acute renal failure, I really do not want to give him blood at this time which could worsen his volume status. He is hemodynamically stable. We will monitor his blood counts and transfuse as indicated. I will check stool cards to screen for occult blood. 3. Hypertension. His blood pressure is stable. We will continue his current regimen of medications. cc: Arsh Brock MD
[2018-12-23] MEDS ORDERED: DIPRIVAN 1% ONE (08:29)
[2018-12-23] MEDS ORDERED: KEFZOL 1 GM/D5W 1 GM/50 ML IVPB ONE (08:48)
--- NOTE | 2018-12-23 08:50 | EKG Report ---
Test Performed on : 12/21/2018 8:22:34 PM Test Reason : chest pain Blood Pressure : / mmHG Vent. Rate : 068 BPM Atrial Rate : 068 BPM P-R Int : 224 ms QRS Dur : 094 ms QT Int : 402 ms P-R-T Axes : 000 -05 036 degrees QTc Int : 427 ms Sinus rhythm. with marked sinus arrhythmia. with 1st degree AV block. Cannot rule out Anterior infarct , age undetermined Abnormal ECG When compared with ECG of 18-SEP-2017 13:55, MT interval has increased Confirmed by Meron GAITAN, Dirk Cabrera ([id number]) on 12/23/2018 3:28:05 PM
--- NOTE | 2018-12-23 10:14 | Diag Imaging Result Doc PS360 ---
EXAM: RETROGRADES 2 OR 3 FILMS INDICATION: RT. RETROGRADES, RT. JJ STENT PLACEMENT TECHNIQUE: COMPARISON: None. FINDINGS: 15 spot fluoroscopic images were provided, which were performed during right hilar ureterogram and right ureteral stent placement by Dr. Jose G Miranda. There is focal narrowing of the mid to distal right ureter related to the mass seen on the recent CT dated 12/22/2018. There is right hydronephrosis. On the final image, the newly placed right ureteral stent is identified in the expected position. IMPRESSION: As above. Please correlate with live fluoroscopic imaging. Electronically signed by Salvador Avila 12/23/2018 10:12 AM
[2018-12-23] MEDS ORDERED: LEVSIN PO PRN (10:18)
[2018-12-23] MEDS ORDERED: DILAUDID ONE (10:19)
--- NOTE | 2018-12-23 10:47 | OPERATIVE NOTE ---
PROCEDURE DATE: 12/23/2018 PREOPERATIVE DIAGNOSES: 1. Right hydronephrosis and solitary kidney. 2. Acute kidney injury. POSTOPERATIVE DIAGNOSES: 1. Right hydronephrosis and solitary kidney. 2. Acute kidney injury. PROCEDURES PERFORMED: 1. Cystoscopy. 2. Right retrograde pyelogram. 3. Right ureteral stent placement. SURGEON: Jose G Miranda M.D. ANESTHESIA: General with LMA. COMPLICATIONS: None. BLOOD LOSS: Minimal. SPECIMENS REMOVED: None. DRAINS: A 6-Greek by 28 cm stent. OPERATIVE FINDINGS: The patient had significant scrotal edema as well as penile edema. The patient had normal meatus and a normal urethra. I was able to traverse all the way up into the prostate, which showed no evidence of hypertrophy and was normal prostate. The bladder neck was slightly elevated, likely more prominent due to scrotal edema. On entry into the bladder, the entirety of the bladder was inspected with 30-degree and a 70-degree lens. No evidence of any papillary lesions, trabeculations, or diverticula were seen. An open-ended ureteral catheter was then passed through the scope, flushed of all bubbles, and the right ureteral orifice was canalized. I was able to inject Omnipaque, which outlined a tortuous ureter that had evidence of hydroureteronephrosis starting in the midureter, as well as dilation of the collecting system. The patient then had placement of a wire and had uneventful placement of a 6Fx28 cm stent with a coil up in the upper pole of the kidney, with drainage seen through and around the stent. INDICATIONS FOR PROCEDURE: Mr. 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 The patient was diagnosed with lymphoma in 2017, and received chemotherapy at [facility], and has been followed there since then. The patient has had some slow recurrence of his lymphoma after initial chemotherapy regimen. The patient presented to the emergency room on with scrotal edema as well as lower extremity edema. The patient was found to have an elevated creatinine at 6, which has worsened to 6.7 today. The patient had a CT abdomen and pelvis done yesterday, which showed evidence of hydronephrosis on the right side, with a surgically absent left kidney. Due to worsening renal function and fluid overload status, it was recommended that he undergo cystoscopy, right retrograde pyelogram, and right ureteral stent placement. Risks, benefits, and alternatives of surgical procedure were discussed with the patient , and the patient elected to proceed. DESCRIPTION OF PROCEDURE: After informed consent was obtained, the patient was brought to the operating room and placed on the operative table in the supine position. He underwent general anesthesia with LMA placement, and received preoperative antibiotics. The patient was then placed into a dorsal lithotomy position. The catheter from the floor was removed. The patient had significant scrotal edema as well as penile edema. The patient then underwent prepping and draping. A preoperative time-out was performed with all parties in agreement, including anesthesia, surgical, and nursing staff. At which time a 21-Greek cystourethroscope was inserted through a normal urethra and into the bladder. The patient had no evidence of stricture disease or papular lesions within the urethra. The patient's prostate was small. No evidence of any hypertrophy or obstruction. On entry to the bladder, the bladder neck was slightly elevated, likely more prominent, related to the scrotal edema. On entry to the bladder, the entirety of the bladder was inspected with a 30 and a 70-degree lens. No evidence of any papillary lesions, trabeculations, cellules, or diverticula. The right ureteral orifice was visualized, and an open- ended ureteral catheter was then passed through the scope and flushed of all bubbles, and the right ureteral orifice was canalized and injected with Omnipaque, which outlined a normal distal ureter, which had a transition point in the midureter and showed evidence of hydroureteronephrosis up into the collecting system. A wire was then passed through the open-ended catheter, and seen to coil within the collecting system. The open-ended catheter was removed, and a 6-Greek x 26 cm stent was then passed over the wire, up into the collecting system. A good coil was seen in the upper pole of the kidney, endoscopically was visualized within the bladder. Drainage was seen through and around the stent. The patient's bladder was cycled and left full. The cystourethroscope was removed, and an 18-Greek coude catheter was inserted through the urethra and into the bladder. This was inflated with 10 mL of sterile water, and placed to gravity drainage. Following this, digital rectal exam was performed, which showed evidence of a 30-gram prostate with no nodules or firmness, decreased rectal tone, likely related to anesthesia. No palpable rectal masses. The patient was then awoken and was taken to recovery in stable condition and will be transported to the floor. cc: MD Arsh Holguin MD [email or web address]
[2018-12-23] MEDS: FLOMAX PO SCH (11:32)
[2018-12-23] MEDS: LOPRESSOR PO SCH (11:32)
[2018-12-23] MEDS: NEURONTIN PO SCH ×2 (11:32→20:55)
[2018-12-23] MEDS: PRAVACHOL PO SCH (11:33)
[2018-12-23] MEDS: HYTRIN PO SCH (11:33)
[2018-12-23] MEDS: PRILOSEC PO SCH (11:33)
--- NOTE | 2018-12-23 11:37 | NEPHROLOGY PROGRESS NOTE ---
DATE: 12/23/2018 TIME SEEN: 0650. SUBJECTIVE: Mr. Good is sitting up in a chair. Complains of swelling and bloated feeling to his abdomen. OBJECTIVE: His most recent vital signs: Previous temperature 97.8 degrees, blood pressure 110/46, heart rate 65, respirations are 18, he is on 2 L nasal cannula, last recorded saturation is 94%. Intake and output: He has had 917 mL in, 1625 out to Vee catheter after insertion yesterday. LABORATORY DATA: Sodium 144, potassium 5.4, chloride 109, CO2 of 22, BUN 89, creatinine 6.7, glucose 59, anion gap is 13, calcium is 9.5. White count 4.37, hemoglobin 6.9, hematocrit 22.4 with a platelet count of 127,000. PHYSICAL EXAMINATION: General: This is a 73-year-old elderly male, sitting up in a chair. He appears chronically ill, though in no acute distress. Skin: Warm and dry. HEENT: Normocephalic, atraumatic. Conjunctivae are pale pink. BILL. Mucous membranes are dry. Neck: Supple. Trachea midline. He does have positive JVD. Cardiovascular: Irregularly irregular rate and rhythm. He is slightly tachycardic. Lungs: Clear to auscultation anteriorly. Equal excursion. He is currently on room air. Abdomen: Slightly distended. He does have edema from his legs up into his mid hip/abdominal region. Genitourinary: Not inspected. Vee catheter is in place with clear yellow urine out. Extremities: Have 3+ edema, tight, going up into the hip/abdominal area. Neurological: Alert and oriented x3. ASSESSMENT AND PLAN: 1. Acute kidney injury on chronic kidney disease (CKD) stage 3. Patient's BUN and creatinine have slowly risen since his admission. He has hydronephrosis with plan for possible ureteral stenting today. He remains n.p.o. He has had adequate urine output documented after placement of Vee catheter. He does continue to have swelling. 2. Fluid volume overload. Vee catheter is in place. The patient has improved urine output. We will give him Lasix 40 mg IV push to assist with his fluid volume overload. Plans for renal stenting today. 3. Hydronephrosis. The patient has been seen and evaluated by Dr. Payne on the with plans for renal stent placement today. 4. Electrolytes, acid-base balance. These are acceptable. 5. Anemia. This remains low. Patient's hemoglobin has slowly decreased since his hospitalization. Hemoglobin of 6.9. The patient remains hemodynamically stable. We will defer to the primary care team for intervention. I would like to thank you for allowing us to follow with this patient. Dictated by EDMUND Dey for Tico Javier MD Face to face encounter, data reviewed, discussed with Reinaldo Peacock on 12/24/18. I agree with the above assessment and plan of care. cc: EDMUND Dey MD M. Neel Roberts, MD [facility]
[2018-12-23] MEDS ORDERED: LASIX ONE (11:43)
--- NOTE | 2018-12-23 15:44 | HEMO/ONC CONSULTATION ---
DATE: 12/23/2018 REQUESTING PHYSICIAN: Hospitalist Service. REASON FOR CONSULTATION: Anasarca and HL, patient known. HISTORY OF PRESENT ILLNESS: Mr. 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 The patient is actually receiving treatment at [facility]. He is currently receiving treatment every other week. Unfortunately, the patient nor his knows exactly the names of the medications he is receiving. We see the patient every 6 months in our office and are available to assist him with any needs locally. Evidently the patient was actually down at [facility] last week and talked to them about the fact that he had some lower extremity swelling. They were not overly concerned per their report and gave him some things to do to help with the swelling. However , the swelling continued to worsen. He even contacted his primary care physician's office and they told him to increase his Lasix and that was not effective. It got to the point where the patient was unable to walk. Upon admission, it was found that he had rather significant anasarca. He has swelling even in his scrotum, up to his abdomen. A CT scan had showed a large right iliac mass which is compressing on the distal right ureter causing hydronephrosis. The patient is now status post right stent placement with Dr. Miranda over the weekend due to having renal failure. The patient is in now and has no acute complaints. PAST MEDICAL HISTORY: 1. Diabetes. 2. Heart disease. 3. Hypertension. 4. Degenerative disk disease. 5. Congenital hydronephrosis. 6. Atrial fibrillation. 7. BPH. 8. Hypercholesterolemia. 9. Peripheral neuropathy. 10. 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 PAST SURGICAL HISTORY: 1. Cholecystectomy in 2010. 2. Removal of his right kidney in 1973. 3. He has had some epidurals in the past. 4. He is also now status post stent placement in his right ureter during this hospitalization. SOCIAL HISTORY: Patient denies any alcohol or illicit drug use. He has never smoked before. He has no children. FAMILY HISTORY: His mother at the age of 82. His father at the age of 75. There is no history of malignancy in his family. REVIEW OF SYSTEMS: Twelve point review of systems has been completed and is negative except for expressed in HPI. PHYSICAL EXAMINATION: Vital Signs: Temperature 97.9 degrees, heart rate 67, respirations 19, blood pressure 113/57, O2 saturation 95% on 2 L nasal cannula. General: This is a male lying in a hospital bed. He is comfortable and has no acute distress currently. Head: Normocephalic, atraumatic. Eyes: Pupils equal, round, and reactive. Ears , nose, throat, mouth: Oral mucosa is normal. Cardiovascular: S1, S2 heard. No murmurs, gallops, rubs appreciated. Respiratory: Chest is clear anteriorly bilaterally. No rhonchi, rales, or wheezing noted. Gastrointestinal: Abdomen is distended with noted abdominal wall edema. Positive bowel sounds noted. No real tenderness noted. Musculoskeletal: No bony abnormalities. Extremities: Patient has bilateral lower extremity swelling again that goes all the way up to his abdomen. He also has scrotal swelling. No erythema. No warmth. Right leg is equal to left leg. It is pitting edema. Neurologic: Patient is alert and oriented with no focal motor deficits noted. LABS AND STUDIES: White blood cells 4.37, hemoglobin 6.9, hematocrit 22.4, platelet count a 127,000. Sodium 144, potassium 5.4, chloride 109, CO2 22, BUN 89, creatinine 6.7, glucose 59. Abdominal/pelvis CT shows large mass/adenopathy in the right iliac region. Mild right hydronephrosis which apparently is related to compression or invasion of the mid to distal right ureter by the right iliac mass/adenopathy. Right inguinal adenopathy. Chronic mesenteric adenopathy with haziness of central mesentery. Uncomplicated colonic diverticulosis. No bowel obstruction. ASSESSMENT AND PLAN: 1. 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 Patient is receiving treatment at [facility]. He is on a clinical trial down there at [facility]. We are going to go ahead request his most recent records. He is not a candidate for any treatment currently. Will also make sure that they are notified that he is in the hospital. He will follow up with [facility] once he has left the hospital. 2. Anemia. We would recommend that the patient proceed with 1 unit of packed red blood cells given his comorbidities, recent treatment for his diffuse large B-cell lymphoma, as well as his anasarca. His hemoglobin is down to 6.9. The addition of blood could help with some of his swelling. We will defer though to Dr. Brock. 3. Anasarca with lower extremity edema. He had the obstruction from the mass in his abdomen. He also has inguinal adenopathy. All these are probably resulting in him having excessive fluid. Continue current management. 4. Renal failure. Continue per nephrology. Thank you for consulting us on Mr. Good. Will continue to follow along and adjust our treatment plan per his hospital course. Dictated by CONRADO Howard for Paulina Sainz MD cc: MD Arsh Gruber MD I have seen and examined the patient and the above note reflects my history, physical, assessment and plan. Paulina GODOY
[2018-12-23] MEDS: NORCO-5 PO PRN (20:54)
[2018-12-23] MEDS: NS 1,000 ML IV SCH (20:55)
[2018-12-23] MEDS: XARELTO PO SCH (20:55)
[2018-12-24 07:26] LABS: HEMOGLOBIN 7.4 g/dL (14.0-18.0)
[2018-12-24 07:50] LABS: ALBUMIN 3.3 g/dL (3.5-5.0); CALCIUM 9.6 mg/dL (8.8-10.2); CREATININE 5.1 mg/dL (0.7-1.2); PHOSPHORUS 4.8 mg/dL (2.7-4.5); POTASSIUM 4.8 mmol/L (3.5-5.1)
[2018-12-24] MEDS ORDERED: LASIX IV ONE (08:17)
[2018-12-24] MEDS: PRAVACHOL PO SCH (08:58)
[2018-12-24] MEDS: FLOMAX PO SCH ×2 (08:58→20:25)
[2018-12-24] MEDS: NEURONTIN PO SCH ×2 (08:58→20:25)
[2018-12-24] MEDS: PRILOSEC PO SCH (08:59)
[2018-12-24] MEDS: LOPRESSOR PO SCH (08:59)
--- NOTE | 2018-12-24 13:18 | NEPHROLOGY PROGRESS NOTE ---
DATE: 12/24/2018 TIME SEEN: Date 649. SUBJECTIVE: Mr. Good is resting in bed. He has no complaints. OBJECTIVE: LABORATORY DATA: Sodium 145, potassium 4.8, chloride 112 CO2 23, BUN 78, creatinine 5.1, glucose 85. His anion gap is 10, calcium is 9.6, phosphorus 4.8, albumin is 3.3. Previous hemoglobin is now 7.4 with hematocrit of 25. PHYSICAL EXAM: Most recent Vital signs: His last temperature 97.8 degrees, blood pressure 110/49, heart rate 53, respirations 15. He is on room air last recorded saturation 97%. He has had 1100 in, 5400, also Vee catheter. General: This is a 73-year-old male, currently resting in bed, appears chronically ill, no acute distress. Skin: Warm and dry. HEENT: Normocephalic, atraumatic. Conjunctiva is pale. He has BILL. Mucous membranes are dry. Neck : Supple. Trachea midline. Positive JVD. Cardiovascular: Irregular irregular rate and rhythm. He is without murmur or gallop. Lungs: Clear to auscultation bilaterally. Equal excursion. Abdomen: Large, distended. Positive bowel sounds. Genitourinary: Not inspected. Patient noted swelling. This continues from admission. Extremities: Have 3+ edema, tight, going up into the hip, abdominal area. Neurological: Alert and oriented x3. ASSESSMENT AND PLAN: 1. Acute kidney injury on chronic kidney disease stage 3. Patient's BUN and creatinine have slightly improved today. We had given him Lasix yesterday. He did have a renal stent placed per Dr. Miranda yesterday. Urine output has improved. No indications for dialysis. 2. Fluid volume overload. The patient continues with Vee catheter in place. This is a ramos- colored urine. He received Lasix 40 mg IV yesterday for fluid volume overload. We will plan to give another 40 mg today. 3. Hydronephrosis. Per Dr. Miranda, renal stent was placed yesterday, increased urine output. Improved BUN and creatinine. 4. Electrolytes, acid-base balance and anemia. These remain acceptable. I would like to thank you for allowing us to follow with this patient. Rachel Peacock NP, dictating a progress note for Dr. Tico Javier. Dictated by EDMUND Dey for Tico Javier MD Face to face encounter, data reviewed, discussed with Reinaldo Peacock on 12/24/18. I agree with the above assessment and plan of care. cc: EDMUND Dey MD M. Neel Roberts, MD [facility]is[facility]
--- NOTE | 2018-12-24 16:38 | PROGRESS NOTE ---
DATE: 12/24/2018 SUBJECTIVE: Mr. Good was sitting up in a chair this morning when I saw him. He reported that he felt stronger. He denied any chest pain, palpitations, or anginal equivalents. He had a ureteral stent placed yesterday. Urine output continues to improve. His creatinine has dropped from 6.7 to 3.1. He has a history of type 2 eta-zyjuebk-pdyhvqhct diabetes mellitus. His blood sugars are ranging from 70 to 245. He has polyuria and polydipsia. He has a history of hypertension. His blood pressure is well controlled. This morning, his blood pressure was 110/49. OBJECTIVE: Vital signs: Temperature 97.8 degrees, pulse 53, respiratory rate 15, BP 110/49. Cardiovascular: Regular rate and rhythm. Lungs: Faint crackles in the bases bilaterally. Abdomen: Soft, nontender, with active bowel sounds. Genitourinary: Marked scrotal edema. Extremities: 2+ pitting edema bilaterally. ASSESSMENT AND PLAN: 1. 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 He had a ureteral stent placed. We will continue to diurese him with Lasix as he is still retaining fluid. We will recheck a BMP in the morning. 2. Type 2 oyk-eueyqgu-jvvzxjlka diabetes mellitus. Blood sugars are too high. Given his renal dysfunction, he can not take metformin sulfonylurea. We will continue patterned sugars and a Humulin R sliding scale. 3. Hypertension. His blood pressure is stable. We will continue his current regimen of medication. cc: Arsh Brock MD
[2018-12-24] MEDS: XARELTO PO SCH (20:25)
[2018-12-25] MEDS: NS 1,000 ML IV SCH ×2 (06:32→10:53)
[2018-12-25 07:38] LABS: CALCIUM 9.2 mg/dL (8.8-10.2); CREATININE 3.5 mg/dL (0.7-1.2); PHOSPHORUS 3.9 mg/dL (2.7-4.5); POTASSIUM 4.4 mmol/L (3.5-5.1)
[2018-12-25] MEDS: PRILOSEC PO SCH (09:13)
[2018-12-25] MEDS: PRAVACHOL PO SCH (09:13)
[2018-12-25] MEDS: LOPRESSOR PO SCH (09:14)
[2018-12-25] MEDS: FLOMAX PO SCH (09:14)
[2018-12-25] MEDS: NEURONTIN PO SCH (09:14)
[2018-12-25] MEDS ORDERED: LASIX PO SCH (13:00)
--- NOTE | 2018-12-25 13:21 | NEPHROLOGY PROGRESS NOTE ---
DATE: 12/25/2018 TIME SEEN: 0715. SUBJECTIVE: Mr. Good is sitting up in a chair. He states that he remains swollen. Has had good urine output. Has no significant complaints. OBJECTIVE: His most recent vital signs: Temperature 97.5 degrees, blood pressure 110/54, heart rate 78, respirations 16, he is on room air, his last recorded saturation was 96 %. Intake and output: He has had 1220 in, 5700 out to Vee catheter. LABORATORY DATA: Sodium is 145, potassium 4.4, chloride 114, CO2 of 17, BUN 60 , creatinine 3.5, glucose 74, anion gap of 14, calcium 9.2, phosphorus 3.9, albumin of 3. Previous hemoglobin of 7.4. PAST MEDICAL HISTORY: The patient has a history of lymphoma, followed by Dr. Sainz. PHYSICAL EXAMINATION: General: This is a 73-year-old white male, resting quietly in a chair. He appears chronically ill, in no acute distress. Skin: Warm and dry. HEENT: Normocephalic, atraumatic. Conjunctivae are pale pink. BILL. Mucous membranes dry. Neck: Supple. Trachea midline. Positive JVD in the upright position. Cardiovascular: Irregular rate and rhythm. Lungs: Clear to auscultation bilaterally. Equal excursion. He is on room air. Abdomen: Soft, nontender. Positive bowel sounds. Genitourinary: Not inspected. Vee catheter is in place. He has ramos to yellow urine in his Vee catheter bag. Extremities: Continues with 2 to 3+ lower extremity edema that is tight going up into the mid hip/abdominal region. Neurological: Alert and oriented x3. ASSESSMENT AND PLAN: 1. Acute kidney injury on chronic kidney disease stage 3. Patient's BUN and creatinine have continued to stabilize. Creatinine is now down to 3.5 from 5.1, highest level of 6.7. His renal stents have been placed per Dr. Miranda. No indications for intervention. 2. Fluid volume overload. I spoke with Vinod Coyle, and Emeli. Likely lymphatic obstruction from his lymphoma. Unlikely to respond well to diuretics. rg 3. Electrolytes and acid-base balance. These have been fairly stable. 4. Anemia. This is low. Hemoglobin is now down to 7.4, though patient does have lymphoma, followed by Oncology. I would like to thank you for allowing us to follow with this patient. Dictated by EDMUND Dey for Tico Javier MD Face to face encounter, data reviewed, discussed with Reinaldo Peacock on 12/25/18. I agree with the above assessment and plan of care. cc: EDMUND Dey MD M. Neel Roberts, MD [facility]
[2018-12-25 15:56] VITALS: BP 140/65
--- NOTE | 2018-12-25 23:36 | DISCHARGE SUMMARY ---
ADMISSION DATE: 12/21/2018 DISCHARGE DATE: 12/25/2018 DISCHARGE DIAGNOSES: 1. Ascites due to lymphatic obstruction due to underlying lymphoma. 2. Acute renal failure superimposed on stage 3 chronic renal failure. 3. Hydronephrosis due to obstruction of the right ureter. 4. Obstruction of the right ureter due to extrinsic compression of the ureter by tumor mass. 5. Acute urinary retention secondary to benign prostatic hypertrophy requiring indwelling Vee catheter. 6. Essential hypertension. 7. Type 2 noninsulin-dependent diabetes mellitus complicated by polyneuropathy. 8. Mixed hyperlipidemia. 9. Paroxysmal atrial fibrillation. DISCHARGE INSTRUCTIONS: 1. Return to clinic in 1 week to see me, Dr. Shant Brock, in anticipation of a transition of care visit. 2. Activity as tolerated. 3. An 1800 calorie ADA diet. MEDICATIONS: Proscar 5 mg daily, [place] 5 one q.6 hours p.r.n. pain, #30, Levsin 0.125 mg every 8 hours as needed for abdominal bloating, omeprazole 40 mg daily, Januvia 100 mg daily, Flomax 0.4 mg b.i.d., Victoza 1.8 mg subcutaneously daily, gabapentin 300 mg b.i.d., glimepiride 4 mg b.i.d. Lopressor 50 mg daily, pravastatin 40 mg at bedtime, Xarelto 20 mg daily, Fenofibrate 145 mg daily. DISCHARGE PHYSICAL EXAMINATION: General: This is a well-developed, well-nourished, very pleasant, 73-year-old gentleman in no apparent distress. Vital signs: He is afebrile. Vital signs are stable. Cardiovascular: Regular rate and rhythm. Lungs: Clear. Abdomen: Soft, nontender with active bowel sounds. Extremities: He has 2+ pitting edema in the lower extremities bilaterally. Genitourinary: He still has significant edema of the penis and scrotal sac. HISTORY AND HOSPITAL COURSE: Mr. Manuel Good is a 73-year-old gentleman who is currently undergoing chemotherapy for refractory lymphoma. He presented to the ER with significant ascites. He had significant abdominal swelling as well as marked edema of the lower extremities bilaterally, as well as the penis and scrotum. As a result of the penile and scrotal swelling, and underlying BPH, he had acute urinary retention and was unable to void. Dr. Payne was consulted to see the patient and placed an indwelling Vee catheter. We felt that the ascites was due to lymphatic obstruction. A noncontrasted CT scan of the abdomen and pelvis demonstrated chronic central mesenteric adenopathy. There was right-sided hydronephrosis secondary to ureteral obstruction from compression or invasion of the mid to distal right ureter by right iliac mass and adenopathy. The patient was placed on a salt restricted diet and was aggressively diuresed with Lasix. He has a baseline creatinine of 1.2. On admission his BUN and creatinine were 91 and 6.0. On 12/23 his BUN and creatinine were [address] Miranda placed and indwelling ureteral stent in the right ureter. Urine output improved greatly and his BUN and creatinine at the time of discharge were 60 and 3.5. He had urine output of over 10,000 mL of urine over the course of his hospitalization. Mr. Good and his understand that he will need an indwelling stent of the ureter for the foreseeable future, until compression of the ureter by the lymphoma has been relieved. He will need a new stent in 3 months due to the urinary retention due to the penile swelling and BPH we added Proscar 5 mg daily and changed him to Flomax 0.[address] Payne has recommended that we continue the indwelling Vee catheter until his creatinine has returned to baseline. I have scheduled him for a BMP as an outpatient on Sunday12/27/2018. He does have a longstanding history of type 2 noninsulin-dependent diabetes mellitus complicated by polyneuropathy. Because of the renal dysfunction we discontinued the metformin. We initially placed him on patterned sugars and a Humalog sliding scale. I have reviewed an 1800 calorie ADA diet with him. We will continue Amaryl 4 mg b.i.d. and will increase the dosage of Victoza to 1.8 mg subcutaneously daily. We will continue Januvia 100 mg daily. He does have a longstanding history of paroxysmal atrial fibrillation. He remained in normal sinus rhythm throughout his hospitalization. He had no bleeding complications secondary to the Xarelto. His heart rate ranged from 60 to 75 on metoprolol. Having reached maximum hospital benefit, the patient was discharged in stable condition. cc: Arsh Brock MD
[2018-12-26] MEDS ORDERED: JANUVIA PO SCH (09:00)
[2018-12-26] MEDS ORDERED: VICTOZA SUBQ SCH (09:00)
[2018-12-26] MEDS ORDERED: PROSCAR PO SCH (09:00)
== END 2018-12-25 19:23 | disposition home or self-care (01) | DRG 660 ==
LOC: ED 13:12 → EDIPHOLD 18:41 → 3N 12-22 10:36
PROVIDERS: ADMIT Internal Medicine; ATTEND Internal Medicine
CPT/HCPCS: 51702; 51798; 71020; 71046; 74176; 74420; 76870; 80048; 80053; 80069; 81001; 82272; 82550; 82728; 82948; 83540; 83735; 84100; 84443; 84484; 85014; 85018; 85025; 85027; 85610; 85730; 87040; 93005; 94761; 96374; 96375; 96376; 99285; A9270; C2617; J0690; J1170; J1940; J7030; Q9966; Q9967; XXXXX

== ENCOUNTER 2019-04-30 13:27 | Inpatient (IN) ==
[2019-04-30 14:56] LABS: BASO# 0.03 X1000 (0.0-0.2); BASO% 1.2 % (0.0-0.8); EOS# 0.09 X1000 (0.0-0.7); EOS% 3.5 % (0.0-10.0); HEMATOCRIT 24.6 % (42.0-52.0); HEMOGLOBIN 7.7 g/dL (14.0-18.0); IMM GRAN# 0.12 X1000 (0.0-0.04); IMM GRAN% 4.7 % (0.0-0.5); LYMPH# 0.45 X1000 (1.2-3.4); LYMPH% 17.7 % (20.5-51.1); MCH 28.5 PG (27-31); MCHC 31.3 g/dL (33-37); MCV 91.1 FL (81-99); MONO# 0.24 X1000 (0.11-0.59); MONO% 9.4 % (1.7-9.3); MPV 10.2 FL (7.4-10.4); NEUT# 1.61 X1000 (1.4-6.5); NEUT% 63.5 % (42.2-75.2); PLT 146 X1000 (130-400); RDW 15.2 % (11.5-14.5); WBC 2.54 X1000 (4.8-10.8)
[2019-04-30 15:18] LABS: CALCIUM 10.6 mg/dL (8.8-10.2); CREATININE 4.3 mg/dL (0.7-1.2); POTASSIUM 5.4 mmol/L (3.5-5.1)
[2019-04-30] MEDS ORDERED: MORPHINE IV ONE (15:25)
[2019-04-30] MEDS ORDERED: ZOFRAN IV ONE (15:25)
[2019-04-30] MEDS ORDERED: DIPRIVAN 1% ONE (16:30)
[2019-04-30] MEDS ORDERED: ROBINUL ONE (16:30)
[2019-04-30] MEDS ORDERED: XYLOCAINE-MPF 2% ONE (16:30)
[2019-04-30] MEDS ORDERED: TYLENOL PO PRN (16:54)
[2019-04-30] MEDS ORDERED: PHENERGAN IV PRN (16:54)
[2019-04-30] MEDS ORDERED: SODIUM CHLORIDE 0.9% INJ PRN (16:54)
[2019-04-30] MEDS ORDERED: FENTANYL ONE (17:02)
[2019-04-30] MEDS ORDERED: KEFZOL 2 GM/D5W 2 GM/50 ML IVPB ONE (17:12)
[2019-04-30] MEDS ORDERED: DECADRON ONE (17:31)
[2019-04-30] MEDS ORDERED: ZOFRAN ONE (17:31)
[2019-04-30] MEDS ORDERED: NS 1,000 ML ONE (18:09)
--- NOTE | 2019-04-30 18:32 | Diag Imaging Result Doc PS360 ---
EXAM: CHEST-PORTABLE INDICATION: HTN TECHNIQUE: One view COMPARISON: 12/21/2018 FINDINGS: The right chest port is in stable position. The lungs are grossly clear. There is no discrete pleural fluid collection or pneumothorax. There is stable cardiomegaly. Central vasculature is unremarkable. IMPRESSION: Stable cardiomegaly. No definite acute chest pathology by plain radiograph. Electronically signed by Salvador Avila 04/30/2019 6:29 PM
--- NOTE | 2019-04-30 18:50 | HISTORY AND PHYSICAL ---
HISTORY OF PRESENT ILLNESS: Mr. Manuel Good is a 74-year-old gentleman who is well known to me. He has a history of multiple medical problems including paroxysmal atrial fibrillation, type 2 noninsulin-dependent diabetes mellitus, mixed hyperlipidemia and BPH. He was hospitalized from 12/21/2018 to 12/25/2018 with acute renal failure superimposed on stage 3 chronic renal failure. 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 Dr. Miranda placed an indwelling ureteral stent in the right ureter. He had obstruction of the right ureter due to extrinsic compression of the ureter by tumor mass. He last had a treatment in [place] approximately 6 weeks ago. He does not remember the last time they have performed any scans. Previous scans had demonstrated significant adenopathy. He presented to the ER today; he had been unable to void for 36 hours. His renal function was wildly abnormal. His BUN was 90 and his creatinine was 4.3. Baseline creatinine is around 1.3 to 1.4. In spite of the stent, he was noted to have right hydronephrosis. PAST MEDICAL HISTORY: As above. PAST SURGICAL HISTORY: Appendectomy, cholecystectomy, left nephrectomy, cystoscopy with placement of a right ureteral stent. ALLERGIES: Antihistamines. FAMILY HISTORY: Noncontributory. SOCIAL HISTORY: He denies the use of tobacco, alcohol or INCOMPLETE REPORT -- DICTATION ENDS HERE. cc: Arsh Brock MD
--- NOTE | 2019-04-30 19:02 | CONSULTATION ---
DATE OF CONSULTATION: 04/30/2019 HISTORY OF PRESENT ILLNESS: Mr. Good is a 74-year-old with history of recurrent lymphoma, diabetes, hypertension, and hypercholesterolemia, who has had multiple recurrences of his lymphoma and underwent several rounds of chemotherapy, both here at [facility] as well as at [facility]. The patient has a history of right ureteral stent placement into a solitary kidney, which has been obstructed by iliac lymphadenopathy. The patient has been followed in the office and underwent a left nephrectomy back in the due to nonfunctioning kidney. The patient has been stented starting in December, and had one stent exchanged while at [facility] as his renal function was worsening at that time. The patient presents today due to fatigue and tiredness, and saying he has been unable to urinate. The patient drank a large amount of fluids and is not voiding. The patient states he has only made a thimble full since yesterday. He denies any nausea or vomiting, but states he has minimal to no energy. The patient has history of scrotal edema and lower extremity lymphadenopathy of the right leg due to compression from right lymph nodes. The patient had catheter attempted while in the emergency room; however, was unable to have this placed due to his anatomy per the emergency department. The patient has history of prior urethral stricture, but states he had been voiding well until yesterday. The patient's creatinine today is elevated at 4.3, which is elevated from baseline around 1.7. PAST MEDICAL HISTORY: 1. Recurrent lymphoma. 2. Hypertension. 3. Type 2 diabetes. 4. Elevated cholesterol. 5. Atrial Fibrillation PAST SURGICAL HISTORY: 1. Left nephrectomy. 2. Cholecystectomy. 3. Low back surgery. 4. [place] teeth extraction. 5. Lymph node biopsy. ALLERGIES: Rosenda. MEDICATIONS: 1. Gabapentin. 2. Glyburide. 3. Victoza. 4. Metformin. 5. Metoprolol. 6. Pravastatin. 7. Rivaroxaban. 8. Sitagliptin. 9. Terazosin. 10. Fenofibrate. 11. Furosemide. SOCIAL HISTORY: The patient denies tobacco, alcohol, or illicit drug use. FAMILY HISTORY: Denies family history of malignancy. REVIEW OF SYSTEMS: A 12 point review of systems was performed with all pertinent positives and negatives in HPI. PHYSICAL EXAMINATION: Vital Signs: Temperature 98.1 degrees, pulse rate 107, blood pressure 127/55, oxygen saturation 96% on room air. General: Mild distress, alert and oriented. HEENT: Normocephalic, atraumatic. Pupils equal, round, and reactive to light. Mucous membranes moist. Neck: Trachea midline. No palpable masses. Abdomen: Distended with no resonance or tenderness to palpation. No rebound tenderness. : Significant scrotal edema with peripenile edema. Several small spots are present within the right groin overlying lymphadenopathy. Extremities: Lower extremity has significant lymphadenopathy and 3+ pitting edema to above the hip, which is worsened from prior evaluations. Musculoskeletal: Moving all extremities. Neurologic: Gross motor and sensory are intact. LABS: White blood cell count 2.5, hemoglobin 7.7, hematocrit 24.6, and platelets 146,000. Sodium 135, potassium 5.4, chloride 96, bicarb 19, anion gap 20, BUN 90, creatinine 4.3, glucose 179, calcium 10.6. ASSESSMENT AND PLAN: Mr. Good is a 74-year-old with recurrent lymphoma, hypertension, type 2 diabetes, hyperlipidemia, atrial fibrillation, and history of solitary right kidney, who presents in evaluation for anuria and worsening renal function. The patient has a solitary kidney, which has been stented in the past. The patient presents today complaining of minimal urinary output. Renal function has worsened significantly and he is significantly fatigued and tired. Concern arises whether patient has ureteral obstruction. In talking with the patient, options are to undergo renal ultrasound or CT scan versus proceeding to cystoscopy with stent exchange and catheter placement. The patient is concerned that the stent is no longer draining, leading to decreased urinary output. I recommended this is likely the cause. The patient has a history of lymphoma and significant right adenopathy, likely leading to external compression. We will plan to perform cystoscopy, right ureteral stent exchange, right retrograde pyelogram, and urethral catheter placement later today. Continue n.p.o. We will place a stent and see if his renal function improves. We will continue to monitor from a urologic standpoint. The patient will be admitted to Dr. Brock following. cc: MD Arsh Holguin MD [facility]
[2019-04-30] MEDS ORDERED: LEVAQUIN 250 MG/D5W 250 MG/50 ML IVPB IV ONE (19:07)
--- NOTE | 2019-04-30 19:12 | HISTORY AND PHYSICAL ---
HISTORY OF PRESENT ILLNESS: Mr. Manuel Good is a 74-year-old, gentleman with a history of paroxysmal atrial fibrillation, essential hypertension, type 2 noninsulin-dependent diabetes mellitus, stage 3 chronic renal insufficiency, mixed hyperlipidemia and lymphoma. He was hospitalized from 12/21/2018 until 12/25/2018 with acute renal failure secondary to extrinsic compression of the right ureter from tumor mass requiring a right ureteral stent. He presented to the ER stating that he had been unable to void for nearly 36 hours. His BUN and creatinine were [address] Miranda took him to the OR where he successfully placed a new right ureteral stent. He was noted to have a right-sided hydronephrosis. PAST MEDICAL HISTORY: Paroxysmal atrial fibrillation. Essential hypertension, mixed hyperlipidemia, type 2 noninsulin-dependent diabetes mellitus. Chronic renal failure stage 3. PAST SURGICAL HISTORY: Cholecystectomy, appendectomy, cystoscopy with placement of a right ureteral stent. ALLERGIES: Fexofenadine. FAMILY HISTORY: Noncontributory. SOCIAL HISTORY: He denies the use of tobacco, alcohol, or illicit drugs. MEDICATIONS: Fenofibrate 145 mg daily, Proscar 5 mg daily. Gabapentin 300 mg b.i.d., Amaryl 4 mg b.i.d., Levsin 0.125 mg sublingual q.8 hours p.r.n., Victoza 1.8 mg subcutaneously daily. Lopressor 50 mg daily, omeprazole 40 mg daily. Pravastatin 40 mg at bedtime, Xarelto 20 mg daily, Januvia 100 mg daily. Flomax 0.4 mg b.i.d. REVIEW OF SYSTEMS: General: He denies any recent weight gain or weight loss. HEENT: He wears glasses. He is hard of hearing. CV: No chest pain, palpitations, or anginal equivalents. Pulmonary: No shortness of breath, PND, orthopnea. GI: No reflux, dysphagia, melena, hematochezia, change in bowel habits, or rectal bleeding. Endocrine: No polyuria, no polydipsia. No cold or heat intolerance. Skin: No easy bruisability. : He is anuric. Neuro: No migraines or seizures. PHYSICAL EXAMINATION: VITAL SIGNS: This is a chronically ill-appearing, 74-year-old, gentleman in no apparent distress. VITAL SIGNS: Temperature 98.8, pulse 71, respirations 20, BP 140/65. HEENT: Fundi with arteriolar wall thickening. Pupils equal, round, reactive to light. Extraocular eye movements intact. TMs without bullae. NECK: Supple. No masses, JVD or bruits. CV: Regular rate and rhythm. LUNGS: Clear. ABDOMEN: Soft, nontender, with active bowel sounds. No hepatosplenomegaly. No abdominal bruits. LYMPHATICS: He has inguinal adenopathy. GENITOURINARY AND RECTAL: Exams deferred. EXTREMITIES: 2+ pitting edema in the lower extremities bilaterally. NEURO: Decreased light touch in the distal extremities bilaterally. LABS: A CBC demonstrated a white count of 2.54, hemoglobin 7.7, hematocrit 24.6, and a platelet count of 146,000. Electrolytes demonstrated the following: Sodium 135, potassium 5.4, chloride 96, BUN 90, creatinine 4.3, glucose 179. ASSESSMENT AND PLAN: 1. Acute renal failure superimposed on chronic renal failure. I suspect this is largely a postobstructive phenomenon. I suspect that he still has a large tumor burden in the abdomen. Dr. Miranda has successfully replaced the right ureteral stent. We will cautiously give him fluids of normal saline at 75 mL/hour. We will hold antiinflammatories. We will recheck a BMP in the morning. 2. Paroxysmal atrial fibrillation. He remains in normal sinus rhythm. Heart rate is well controlled on Toprol. We will hold the Xarelto for at least 24 hours following surgery. 3. Type 2 noninsulin-dependent diabetes mellitus, complicated by polyneuropathy. Given his renal dysfunction, I will hold the Victoza, Januvia and Amaryl and we will place him on patterned sugars and Humulin R sliding scale. Given his comorbid conditions and clinical presentation, I believe that it is absolutely necessary to admit him to [facility] for further evaluation and management. Attempting to treat him as an outpatient could most likely lead to further renal function. He already has a solitary kidney. I do not want to see him end up on dialysis. I anticipate at this point in time that he will be in the hospital for at least 2 midnights and I will therefore place him in inpatient status. We will resume the Xarelto tomorrow which will be an appropriate prophylaxis against deep vein thrombosis. cc: Arsh Brock MD
[2019-04-30] MEDS ORDERED: VANCOMYCIN 1 GM/NS 1 GM/250 ML IVPB IV ONE (20:12)
[2019-04-30 21:47] LABS: URINE SOURCE CATH
[2019-04-30 21:50] LABS: BILIRUBIN URINE NEGATIVE (NEGATIVE); BLOOD URINE MODERATE (NEGATIVE); COLOR STRAW; GLUCOSE URINE 300 mg/dL (NEGATIVE); KETONE URINE NEGATIVE (NEGATIVE); LEUKOCYTES URINE NEGATIVE (NEGATIVE); NITRITE URINE NEGATIVE (NEGATIVE); PROTEIN URINE 50 mg/dL (NEGATIVE); SP GRAVITY URINE 1.007; TURBIDITY URINE HAZY (CLEAR); UR EPITHELIAL CELLS <10 /HPF (<10); URINE BACTERIA NEGATIVE /HPF; URINE RBC TNTC /HPF (<10); URINE WBC <10 /HPF (<10); UROBILINOGEN URINE NORMAL (NORMAL)
[2019-04-30] MEDS: NS 1,000 ML IV SCH ×2 (21:57→22:18)
[2019-04-30] MEDS: NEURONTIN PO SCH (22:16)
[2019-04-30] MEDS: FLOMAX PO SCH (22:16)
[2019-04-30] MEDS: NORCO-10 PO PRN (22:16)
[2019-04-30] MEDS: HUMULIN R SUBQ SCH (22:43)
--- NOTE | 2019-05-01 04:04 | OPERATIVE NOTE ---
PROCEDURE DATE: 04/30/2019 PREOPERATIVE DIAGNOSES: 1. Right hydronephrosis. 2. Solitary right kidney. 3. Anuria. 4. Acute on chronic kidney disease. POSTOPERATIVE DIAGNOSES: 1. Right hydronephrosis. 2. Solitary right kidney. 3. Anuria. 4. Acute on chronic kidney disease. PROCEDURES PERFORMED: 1. Cystoscopy. 2. Right retrograde pyelogram. 3. Right ureteral stent exchange. SURGEON: Dr. Jose G Miranda. GIFT CONSULTANT: None. COMPLICATIONS: None. BLOOD LOSS: Minimal. DRAINS: 1. A 8 x 26 cm right ureteral stent. 2. 16-Malay silicone catheter. INDICATIONS FOR PROCEDURE: Mr. Good is a 74-year-old with history of lymphoma, with significant lymphadenopathy within the right iliac chain and right groin. The patient has had prior left nephrectomy for nonfunctional kidney in . The patient has a right solitary kidney and has been stented since December due to hydronephrosis and acute on chronic kidney disease, with last stent exchange in February at [facility]. The patient presents today with worsening renal function and inability to urinate. Concern arises that patient is completely obstructed as he has been unable to urinate today. Attempted placement of catheter in the emergency room was unsuccessful by nursing and ED staff, and Urology was consulted for further recommendations. The patient's renal function shows a creatinine of 4.3 from a baseline of 1.7. In talking with the patient, I recommended cystoscopy and right ureteral stent exchange and placement of urethral catheter. Risks, benefits, and alternatives of the surgical procedure were discussed with patient and his , and they elected to proceed. DESCRIPTION OF PROCEDURE: After informed consent was obtained, the patient was brought to the operating room and placed on the operating table in supine position. Received preoperative antibiotics and was placed into a dorsal lithotomy position. Patient underwent LMA placement and was prepped and draped in the usual sterile fashion. A preoperative time-out was performed with all parties in agreement, including anesthesia, surgical, and nursing staff, at which point patient was examined and had a large amount of scrotal edema and a buried penis. Was able to retract the foreskin enough to see the meatus, and a 21-Malay cystourethroscope was inserted through the urethra. Patient had a slightly narrow pendulous urethra, but accommodating to the urethroscope. Was able to advance to the posterior urethra and into the prostate. Patient had a relatively high bladder neck, likely related to his scrotal edema, but was able to advance the cystourethroscope into the bladder. A flexible grasper was then passed through the scope and the tip of the stent was visualized and grasped and pulled out to the meatus. A wire was then placed through the stent. However, the stent had become dislodged from the ureteral orifice. The stent was completely removed and the cystourethroscope was then reloaded back into the urethra. A ZipWire was easily able to pass into the ureteral orifice and up into the kidney. An open-ended catheter was then advanced over the wire, and a retrograde pyelogram was performed which showed significant hydronephrosis with blunting of the calyx. A tortuous ureter was visualized with slight external compression in the distal portion of the ureter. The wire was then passed back into the kidney itself, and the open-ended catheter was removed. An 8 x 26 cm stent was then backloaded over the wire ad passed up into the kidney. A large amount of stagnant urine and drainage was seen through and around the stent. The patient's bladder was cycled multiple times and left full, and a 16-Malay silicone catheter was passed into the bladder, inflated with 10 mL of sterile water, and placed to gravity drainage with good drainage seen. The patient was then awoken and was taken to Recovery in stable condition. He will be admitted to the hospital for monitoring on the Hospitalist Service. cc: MD Arsh Holguin MD MTDD
[2019-05-01] MEDS: NORCO-10 PO PRN ×2 (07:00→14:51)
[2019-05-01 07:03] LABS: BASO# 0.01 X1000 (0.0-0.2); BASO% 0.5 % (0.0-0.8); EOS# 0.05 X1000 (0.0-0.7); EOS% 2.6 % (0.0-10.0); HEMATOCRIT 22.1 % (42.0-52.0); HEMOGLOBIN 6.9 g/dL (14.0-18.0); IMM GRAN# 0.07 X1000 (0.0-0.04); IMM GRAN% 3.6 % (0.0-0.5); LYMPH% 15.3 % (20.5-51.1); MCH 28.8 PG (27-31); MCHC 31.2 g/dL (33-37); MCV 92.1 FL (81-99); MONO# 0.18 X1000 (0.11-0.59); MONO% 9.2 % (1.7-9.3); MPV 10.2 FL (7.4-10.4); NEUT# 1.35 X1000 (1.4-6.5); NEUT% 68.8 % (42.2-75.2); PLT 126 X1000 (130-400); RDW 15.3 % (11.5-14.5); WBC 1.96 X1000 (4.8-10.8)
[2019-05-01 07:20] LABS: CALCIUM 10.4 mg/dL (8.8-10.2); CREATININE 3.9 mg/dL (0.7-1.2); POTASSIUM 5.3 mmol/L (3.5-5.1)
[2019-05-01] MEDS ORDERED: TYLENOL PO ONE (07:33)
--- NOTE | 2019-05-01 08:13 | PROGRESS NOTE ---
DATE: 05/01/2019 SUBJECTIVE: Mr. Manuel Good was admitted to [facility] with acute renal failure superimposed on chronic renal failure. He has a solitary right kidney. Dr. Jose G Miranda performed cystoscopy, right retrograde pyelogram and exchange of the right ureteral stent. He was noted to have right-sided hydronephrosis. Urine output is improving. He had nearly 2150 mL of urine output. His BUN and creatinine are 90 and 3.9 this morning. He has a history of diffuse large B-cell lymphoma. He is currently receiving chemotherapy at [facility] and takes Revlimid 5 mg daily. He cannot remember the last time that they performed scans in [place]. He had previously required a right ureteral stent due to extrinsic compression of the ureter from intra- abdominal lymphadenopathy and tumor burden. He denies any fever, chills, nausea or vomiting. His pulse has ranged from 95 to 107. He had one respiratory rate of 26. He has leukopenia with a white count of 1.96. Urine Gram stain demonstrates no growth. Urine and blood cultures are pending. His blood sugars are fluctuating. His sugars were 227 last night but were 75 this morning. OBJECTIVE: Vital signs: Temperature 98.5 degrees, pulse 78, blood pressure 106/50. Cardiovascular: Regular rate and rhythm. Lungs: Clear. Abdomen: Mildly distended with good bowel sounds. No rebound or guarding. Extremities: Trace edema. LABORATORY DATA: A BMP demonstrated the following. Sodium 137, potassium 5.3, carbon dioxide 19, BUN 90, creatinine 3.9, calcium 10.4. A CBC demonstrated a white count of 1.9, hemoglobin 6.9, hematocrit 22.1 and a platelet count of 126,000. He has 68% neutrophils. ASSESSMENT AND PLAN: 1. Acute renal failure superimposed on stage III chronic renal failure secondary to obstruction. He had exchange of the right ureteral stent last night. Urine output has improved. We will continue fluid resuscitation and follow his renal function. We will consult Nephrology. 2. Diffuse large B-cell lymphoma. He is leukopenic. He has an absolute neutrophil count of 1500. His hemoglobin and hematocrit are suppressed. I will type, cross-match and transfuse 2 units of packed red blood cells. I will recheck a CBC in the morning. I will check stool cards to screen for occult blood. I will hold the Revlimid. Perhaps he would benefit from Neulasta injections. I will consult Dr. Sainz. 3. Type 2 [id number] diabetes mellitus. Blood sugars are fluctuating. I am going to stop the Victoza and continue to hold the Amaryl and Januvia. We will continue pattern sugars and a Humulin R sliding scale. 4. Neutropenia. He is not running any fever. He did have a heart rate greater than 90. He had one respiratory rate greater than 26. He has a white count of 1960. I suspect that he has systemic inflammatory response syndrome. There is not an obvious source of infection at this time. Blood and urine cultures are pending. We will continue Levaquin 250 mg IV q.48 hours. I bolused him with vancomycin 1 g IV x1 dose last night. I will began Zosyn 2.25 mg IV q.8 hours. cc: Arsh Brock MD
[2019-05-01] MEDS: HUMULIN R SUBQ SCH ×4 (08:37→21:37)
--- NOTE | 2019-05-01 08:44 | PROGRESS NOTE ---
DATE: 05/01/2019 SUBJECTIVE: Postop day 1 from cystoscopy and right ureteral stent exchange. The patient has made a large amount of urinary output overnight with 2.1 L recorded. The patient overall states he feels better. Denies any nausea or vomiting. He says he is tolerating a diet. Denies any scrotal or penile pain. OBJECTIVE: Temperature 98.3 degrees, heart rate 79, blood pressure 115/48, oxygen saturation 98% on room air. General: No acute distress. Resting comfortably in bed. Alert and oriented x3. Respiratory: Good respiratory effort without audible wheezing or rales. Abdomen: Soft, nontender, nondistended. Evidence of abdominal edema. : No suprapubic tenderness, with evidence of suprapubic edema. Large scrotal edema that is slightly pitting. No obvious erythema or crepitus, nontender to palpation. Urethral catheter in place, draining clear yellow urine with over 500 in the bag. Extremities: There is 3+ lower extremity edema all the way to the thighs bilaterally. Multiple erythematous areas present in the right groin that appeared to be chronic. No evidence of any drainage or palpable fluctuance. Labs: White blood cell count 1.9, hemoglobin 6.9, hematocrit 22.1, platelets 126,000. Sodium 137, potassium 5.3, chloride 101, bicarb 19, BUN 90, creatinine 3.9, glucose 102, calcium 10.4. ASSESSMENT AND PLAN: Mr. Good is a 74-year-old with a history of recurrent lymphoma, diabetes, hypertension, and hypercholesterolemia who presents after cystoscopy and right ureteral stent exchange yesterday. The patient has slight improvement in his renal function at 3.9 from 4.3 yesterday. He denies any abdominal or flank pain today. The patient's urethral catheter has been in place and drained over 2.5 L of urine which is clear yellow. The patient clinically feels better. The patient had a slight drop in his hematocrit, likely from fluid resuscitation as well as diuresis. The patient clinically appears to be improving. We will continue to monitor him from a urologic standpoint. I would keep indwelling catheter in at this time. Please call with questions or concerns. cc: MD Arsh Holguin MD MTDD
--- NOTE | 2019-05-01 08:51 | Diag Imaging Result Doc PS360 ---
EXAM: RETROGRADES 2 OR 3 FILMS INDICATION: RT STENT REMOVAL/ RETROGRADE/ STENT PLACEMENT TECHNIQUE: COMPARISON: 12/23/2018 FINDINGS: 20 spot fluoroscopic images were provided, which were performed during right retrograde pyeloureterogram and stent exchange by Dr. Jose G Miranda. On the final image, the newly exchanged right ureteral stent is identified in the expected position. IMPRESSION: As above. Please correlate with live fluoroscopic imaging. Electronically signed by Salvador Avila 05/01/2019 8:48 AM
[2019-05-01] MEDS ORDERED: VICTOZA SUBQ SCH (09:00)
[2019-05-01] MEDS ORDERED: LOPRESSOR PO SCH (09:00)
[2019-05-01] MEDS: PRILOSEC PO SCH (09:59)
[2019-05-01] MEDS: PROSCAR PO SCH (10:00)
[2019-05-01] MEDS: TRICOR PO SCH (10:00)
[2019-05-01] MEDS: FLOMAX PO SCH ×2 (10:00→21:36)
[2019-05-01] MEDS: NEURONTIN PO SCH ×2 (10:00→21:36)
[2019-05-01] MEDS: NS 1,000 ML IV SCH (10:06)
[2019-05-01] MEDS: ZOSYN 2.25 GM in NS 50 ML IV SCH ×3 (10:06→21:36)
--- NOTE | 2019-05-01 14:55 | NEPHROLOGY CONSULTATION ---
DATE: 05/01/2019 REASON FOR ADMISSION: Decreased urinary output and increased swelling. CONSULTING PHYSICIAN: Dr. Shant Brock. HISTORY OF PRESENT ILLNESS: Mr. Good is a 74-year-old white male who is known to Dr. Brock. We had initially met in December of 2018. The patient is known to have a solitary kidney secondary to being removal in the early 1970s due to nephrolithiasis and renal obstruction. During his last hospitalization on 12/21/2018, the patient had acute kidney injury with elevated BUN and creatinine. He was treated for urinary obstruction per Dr. Payne with recovery to creatinine baseline of 1.7. Unfortunately, this patient has a history of lymphoma for which he is undergoing active treatment at [facility]. He has been in a research protocol. States that he has done regular followups and has done fairly well. He has chronic kidney disease stage 3, baseline creatinine of 1.7. It was found on a CT during this hospital stay that he had a recurrent hydronephrosis. Dr. Miranda has placed an indwelling ureteral stent in the right ureter. Girard to be extensive due to compression of the ureter by bladder tumor mass. He is making adequate urine at this time. He denies any chest pain. No increased work of breathing. Positive for lower extremity swelling. He has felt weak. It is noted on admission that his hemoglobin was down to 6.9. He is currently receiving 2 units of packed red blood cells. No fever or chills. No nausea, vomiting, or diarrhea. On admission, it was noted his BUN was 90 with a creatinine of 4.3. He remains with a creatinine of 3.9, which has improved after having his right ureteral stent placed. PAST MEDICAL HISTORY: History of lymphoma with research treatment, previous chemo, previous radiation, diabetes mellitus type 2, hypertension, obesity, atrial fibrillation, hyperlipidemia, and anemia. PAST SURGICAL HISTORY: Left nephrectomy, appendectomy, cholecystectomy, cystoscopy with placement of right ureteral stent x2, and Vee catheter placement previously per Dr. Payne in 12/2018. SOCIAL HISTORY: He is . He lives with his spouse. Denies tobacco, alcohol, or illicit drug use. FAMILY HISTORY: Noncontributory. ALLERGIES: Listed as fexofenadine hydrochloride. HOME MEDICATIONS: Have yet to be reconciled. The patient had previously been on gabapentin, glimepiride, Victoza, metformin, metoprolol, pravastatin, rivaroxaban, sitagliptin, terazosin, fenofibrate, and furosemide. REVIEW OF SYSTEMS: Times 10 with pertinent positives listed above in the HPI. VITAL SIGNS: Currently temperature 98.3 degrees, blood pressure 115/48, heart rate 79, respirations 20. He is on room air. Last recorded saturation 98%. He has had 1050 in. He has had 2150 out to Vee catheter in the last 24 hours. LABS: Sodium 137, potassium 5.3, chloride 101, CO2 19, BUN 90, creatinine 3.9, glucose 102, anion gap is 17, calcium is 10.4. White count 1.96, hemoglobin 6.9, hematocrit 22.1, with a platelet count of 126,000. The patient has a positive urine culture growing gram- positive cocci, this is per wound. We are waiting for urine cultures still currently pending. PHYSICAL EXAMINATION: General: This is a 73-year-old white male resting quietly in bed. He appears chronically ill. No acute distress. Skin: Warm and dry. HEENT: Normocephalic, atraumatic. Conjunctiva is pale. He has BILL. Mucous membranes are dry. Neck: Supple. Trachea midline. No evidence of JVD. Cardiovascular: He is regular rate and rhythm. No appreciable gallop. Lungs: Clear to auscultation anteriorly. Equal excursion. On room air. Abdomen: Large, obese, soft, nontender. Positive bowel sounds. Genitourinary: Not inspected, with noted history of inguinal adenopathy. Extremities: Patient has 2+ pitting edema from the knees up. He has woody edema with chronic venous stasis to the lower extremities. Neurological: He is alert and oriented x3. Good historian. ASSESSMENT AND PLAN: 1. Acute kidney injury secondary to acute hydronephrosis. Dr. Miranda has already placed a right ureteral stent. BUN and creatinine are slowly improving. Adequate urine output has been documented. We will continue to monitor and follow. Vee catheter is in place. Labs in am. 2. Electrolytes and acid-base balance. These remain stable. 3. Anemia. This has been low. Patient is currently receiving 2 units of packed red blood cells. 4. Gram-positive cocci. The patient has received 2 L of normal saline bolus. He is currently receiving normal saline at 75 mL an hour. We will continue to monitor and follow. 5. Decreased urinary output. This is secondary #1. I would like to thank you for allowing us to follow with this patient. Dictated by EDMUND Dey for Tico Javier MD Face to face encounter, data reviewed, discussed with Reinaldo Peacock on 05/01/19. I agree with the above assessment and plan of care. cc: EDMUND Dey MD M. Neel Roberts, MD [facility]
--- NOTE | 2019-05-01 15:54 | HEMO/ONC CONSULTATION ---
DATE: 05/01/2019 CONSULTATION REQUESTED BY: Dr. Brock. CONSULTATION FOR: Patient known. HISTORY OF PRESENT ILLNESS: Mr. 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 The patient has been getting treatment down at [facility]. Per his report, he most recently changed treatments to Revlimid and some sort of other IV treatment, but he can't remember the exact name. It looks like he presented to the emergency department complaining of not being able to urinate for about 36 hours. He was found to have obstruction due to lymphadenopathy. He has since been stented and his urine output has improved. He also had acute renal failure on chronic renal failure at admission. Patient is also currently pancytopenic. Again, he is taking Revlimid and he reports he is taking it on the schedule of 21 days on, 7 days off. We have been consulted to assist in evaluating the patient further. PAST MEDICAL HISTORY: 1. 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 2. Diabetes. 3. Heart disease. 4. Hypertension. 5. Degenerative disk disease. 6. Congenital hydronephrosis. 7. Atrial fibrillation. 8. BPH. 9. Peripheral neuropathy. SURGICAL HISTORY: 1. Cholecystectomy in 2010. 2. Right kidney removal in 1973. 3. Previous epidurals for pain. 4. Port placement. 5. Cystoscopy to place a right ureteral stent. SOCIAL HISTORY: Patient lives with his . He denies any tobacco, alcohol or illicit drug use. FAMILY HISTORY: His mother and father both are . There is no family history of any malignancies. PHYSICAL EXAMINATION: Vital Signs: Temperature 97.6, heart rate 66, respirations 16, blood pressure 91/47. O2 saturation 98% on room air. General: This is a chronically ill-appearing male who is lying in his hospital bed. His and another family member at bedside. HEENT: Head normocephalic, atraumatic. Eyes: Pupils equal, round, reactive. Ears, nose, throat, neck, and mouth mucosa appear to be normal. Gross auditory acuity is intact. Cardiovascular: Regular rate. Respiratory: Normal respiratory effort. Gastrointestinal: Abdomen is nondistended. Musculoskeletal: No bony abnormalities noted. Extremities: He does have edema in bilateral lower extremities with the right greater than the left. Neurologic: Patient is alert and oriented. He cannot move his right lower leg due to the swelling. LABS AND STUDIES: White blood cells 1.96, hemoglobin 6.9, hematocrit 22.1, platelet count 126,000, neutrophil count is 1.35. Sodium 137, potassium 5.3, chloride 101, CO2 19, BUN 90, creatinine 3.9. ASSESSMENT AND PLAN: 1. 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 Patient is currently receiving treatment down at [facility]. Once back to the office, we did go ahead and request records and we find out that the patient has taken Revlimid with Gazyva. He is status post 2nd cycle of Gazyva. Advised that the patient hold Revlimid at this time. He is afebrile, has no obvious signs of infection currently. We will not add any growth factor at this time. Just monitor counts closely. If his counts were to drop further or if he were to develop fever or infectious symptoms, we would consider adding in growth factor. The plan is for him to continue to follow up at [facility] as well as with us. All we do though is check labs about every 6 months and local contact when the patient cannot get down to [facility]. 2. Pancytopenia. Likely secondary to his Revlimid. Again, hold Revlimid at this time. Monitor counts closely. Agree with transfusing blood. Continue supportive care as needed. 3. Ureteral obstruction. Patient is status post stenting. Dr. Simon from Neurology is on board. They are monitoring the patient closely. Renal function is slightly improved. Continue to monitor. 4. Diabetes mellitus. Management per Dr. Brock. 5. Atrial fibrillation. Management per Dr. Brock. We want to thank you for this consult. We will continue to follow along with Mr. Good while he is at [facility]. We will adjust our treatment plan per his hospital course. Dictated by CONRADO Howard for Hasmukh Merritt MD cc: MD Arsh Burks MD [facility]ENTERLisbet
[2019-05-01] MEDS: PRAVACHOL PO SCH (21:36)
[2019-05-02] MEDS: NORCO-10 PO PRN ×2 (01:00→05:28)
[2019-05-02] MEDS: NS 1,000 ML IV SCH (02:06)
[2019-05-02] MEDS: ZOSYN 2.25 GM in NS 50 ML IV SCH ×4 (05:29→22:05)
[2019-05-02] MEDS: PRILOSEC PO SCH ×2 (05:31→09:41)
[2019-05-02] MEDS: HUMULIN R SUBQ SCH ×4 (06:16→21:03)
[2019-05-02 07:40] LABS: BASO# 0.02 X1000 (0.0-0.2); EOS% 4.9 % (0.0-10.0); HEMATOCRIT 26.4 % (42.0-52.0); HEMOGLOBIN 8.4 g/dL (14.0-18.0); IMM GRAN# 0.07 X1000 (0.0-0.04); IMM GRAN% 3.4 % (0.0-0.5); LYMPH# 0.29 X1000 (1.2-3.4); LYMPH% 14.1 % (20.5-51.1); MCH 29.3 PG (27-31); MCHC 31.8 g/dL (33-37); MONO# 0.09 X1000 (0.11-0.59); MONO% 4.4 % (1.7-9.3); MPV 10.4 FL (7.4-10.4); NEUT# 1.49 X1000 (1.4-6.5); NEUT% 72.2 % (42.2-75.2); PLT 125 X1000 (130-400); RBC 2.87 XMIL (4.7-6.1); RDW 15.9 % (11.5-14.5); WBC 2.06 X1000 (4.8-10.8)
[2019-05-02 07:51] LABS: CREATININE 3.7 mg/dL (0.7-1.2); POTASSIUM 4.8 mmol/L (3.5-5.1)
[2019-05-02 08:14] LABS: BANDS 10 % (0-1); EOS 4 % (1-10); LYMPHS 14 % (21-51); MONO 6 % (1-9); SEGS 64 % (42-75)
[2019-05-02] MEDS ORDERED: FLEET MINERAL OIL ENEMA PR ONE (08:18)
--- NOTE | 2019-05-02 08:18 | PROGRESS NOTE ---
DATE: 05/02/2019 SUBJECTIVE: No acute events overnight. The patient did have 1 episode where he had a drop in his blood sugar overnight which went all the way to 36. The patient improved with supplementation. The patient overall feels well today. He got 2 units of blood yesterday. He has had good urinary output with over 3.5 L of urine drained. Denies any fatigue or tiredness today. He feels like he is much more energetic after his blood transfusion. OBJECTIVE: Vital signs: Temperature 98.4 degrees, heart rate 66, blood pressure 98/44, oxygen saturation 99% on room air. General: No acute distress. Resting comfortably in bed, alert and oriented x3. Respiratory: Good respiratory effort without audible wheezing or rales. Abdomen: Soft, nontender, slightly distended with evidence of abdominal edema. : No suprapubic tenderness, significant suprapubic edema, large scrotal edema that is pitting. No obvious erythema or crepitus. This is nontender to palpation. Urethral catheter in place draining clear yellow urine. Extremities: 3+ lower extremity edema bilaterally, more prominent on the right lower extremity. Multiple erythematous areas were seen in the right groin. They are likely chronic. No evidence of drainage or fluctuance. LABS: Cr 3.7. ASSESSMENT AND PLAN: Mr. Good is a 64-year-old with history of recurrent lymphoma, diabetes, hypertension, hypercholesterolemia, who is postoperative day 2 from cystoscopy and right ureteral stent exchange. The patient's renal function only improved slightly yesterday to 3.9, 4.3 on admission. Creatinine was 3.7 today. Has had good urinary output with over 3.4 liters recorded. His urine is clear. Received 2 units of packed red blood cells yesterday. Overall, patient seems to be recuperating appropriately. The patient has been seen by Nephrology, as well as Hematology/Oncology. We will continue to monitor from a urologic standpoint. Please call with questions or concerns. cc: MD Arsh Holguin MD MTDD
[2019-05-02] MEDS ORDERED: LOPRESSOR PO SCH (09:00)
[2019-05-02] MEDS: TRICOR PO SCH (09:37)
[2019-05-02] MEDS: FLOMAX PO SCH ×2 (09:37→21:02)
[2019-05-02] MEDS: NEURONTIN PO SCH ×2 (09:37→21:02)
[2019-05-02] MEDS: PROSCAR PO SCH (09:38)
[2019-05-02] MEDS: D5 NS 1,000 ML IV SCH ×2 (09:40→21:02)
--- NOTE | 2019-05-02 10:12 | PROGRESS NOTE ---
DATE: 05/02/2019 SUBJECTIVE: Mr. Good was admitted to [facility] with acute on chronic renal failure secondary to ureteral obstruction. He has had successful replacement of the ureteral stent. Renal function is slowly improving. His BUN and creatinine were 81 and 3.7 this morning. He is having good urine output. He has had over 5000 mL of urine output over the past 2 days. He is having persistent episodes of hypoglycemia. He is not eating well. He last took Amaryl on Sunday. His blood pressure has been low at times. He remains in normal sinus rhythm. Heart rate has been in the 60s and 70s. He denies any chest pain, palpitations, or anginal equivalents. OBJECTIVE: Temperature 98.3 degrees pulse 73, and BP 104/46.CV: CV regular rate and rhythm. Lungs: Clear. Abdomen: Soft, nontender, with active bowel sounds. Extremities: 1+ pitting edema in the lower extremities bilaterally. ASSESSMENT AND PLAN: 1. Acute renal failure superimposed on stage III chronic renal failure secondary to ureteral obstruction. He is having good urine output. His BUN and creatinine are slowly improving. We will continue fluid resuscitation and monitor his renal function closely. 2. Type 2 dea-sjcnfef-ywmrolqoz diabetes mellitus complicated by polyneuropathy. He is having persistent episodes of hypoglycemia. I suspect that he has had a sulfonylurea poisoning in the face of the acute renal failure. We will continue pattern sugars and a Humulin R sliding scale. I will change his fluids to D5 normal saline at 100 mL per hour and follow his blood sugars. 3. Neutropenia: He has diffuse B-cell lymphoma. He is on Revlimid. We will continue to hold the Revlimid. White count has jumped up from 1.96 to 2.06. We will continue IV antibiotics until he is no longer neutropenic and pending final cultures. Blood counts improved with transfusion. We will continue to monitor his blood counts and transfuse as indicated. cc: Arsh Brock MD
--- NOTE | 2019-05-02 13:45 | NEPHROLOGY PROGRESS NOTE ---
DATE: 05/02/2019 SUBJECTIVE: Patient is sitting up in a chair eating breakfast. He has no complaints today. OBJECTIVE: Vital Signs: Temperature 98.4 degrees, pulse 66, respiratory rate 16, blood pressure 98/44. Intake 4.6 L output 3.4 L. General: This is an elderly gentleman sitting up in a chair. He is awake and alert. He is in no acute distress. HEENT: Normocephalic, atraumatic. BILL. Neck: Supple. No JVD. Cardiovascular: Regular rate and rhythm. No murmur. Pulmonary: Clear bilaterally. Equal excursion. Abdomen: Soft, with positive bowel sounds. : He has a Vee catheter with clear yellow urine. Extremities: 2+ edema with chronic venous stasis changes noted bilateral lower extremities and right lower extremity with significant erythema. Integumentary: Skin is warm and dry. Neurologic: Grossly nonfocal. LAB DATA: Creatinine 3.7 (3.9.) ASSESSMENT AND PLAN: 1. Acute kidney injury secondary to acute hydronephrosis. The patient had 3.4 L of urine output yesterday. Appears he is initially he is having some post obstructive diuresis. His creatinine has improved overnight to 3.7 and 3.9. 2. He has no indications for intervention from a renal standpoint otherwise. We will continue to monitor and assist where available. Dictated by EDMUND Vargas for Tico Javier MD Data reviewed, discussed with Cornelia Matute on 05/02/19. I agree with the above assessment and plan of care. cc: MD Arsh Adams MD MTDD
[2019-05-02] MEDS ORDERED: LINZESS PO ONE (15:04)
--- NOTE | 2019-05-02 19:13 | HEMO/ONC PROGRESS NOTE ---
DATE: 05/02/2019 SUBJECTIVE: Mr. Good is sitting up in his hospital chair. He reports that he is feeling better today and has no acute complaints. LABS: Today, white blood cell count is 2.06, hemoglobin 8.4, platelet count 125. ANC is 1.49. PHYSICAL EXAM: Cardiovascular: S1, S2 heard. No murmurs, gallops, rubs appreciated. Respiratory: Normal respiratory effort. Gastrointestinal: Abdomen is nondistended. Musculoskeletal: Patient has swelling and edema of his right leg. Neurologic: Patient is alert and oriented. Vital Signs: Temperature 98.4, heart rate 72, respirations 16, blood pressure 112/41. ASSESSMENT AND PLAN: 1. 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 The patient is currently receiving treatment at [facility]. He is on Revlimid and Gazyva. We have had the patient hold his Revlimid as he is pancytopenic. He is on IV antibiotics. We will continue to monitor the patient closely. 2. Pancytopenia. Secondary to #1 including treatment. Holding Revlimid as per above. Continue to advise supportive care as needed. Patient is no longer neutropenic today. 3. Acute renal failure on chronic kidney failure secondary to ureteral obstruction. Patient is now status post stenting. His urine output is improving. Urology is on board. Creatinine is also slowly improving. 4. Diabetes mellitus. Management per Dr. Brock. We are going to sign off for the weekend. We will be available by phone as needed. We will resume regular followup on Sunday if the patient is still in the hospital. Otherwise, we will see the patient in our clinic some time next week. Dictated by CONRADO Howard for Paulina Sainz MD cc: MD Arsh Gruber MD I have seen and examined the patient and I agree with the above note which reflects my history, physical, assessment and plan. Paulina GODOY
[2019-05-02] MEDS: PRAVACHOL PO SCH (21:02)
[2019-05-02] MEDS: COLACE PO SCH (21:02)
[2019-05-03] MEDS: ZOSYN 2.25 GM in NS 50 ML IV SCH ×4 (03:28→22:42)
[2019-05-03] MEDS: NORCO-10 PO PRN ×2 (05:05→16:17)
[2019-05-03] MEDS: LINZESS PO SCH (06:04)
[2019-05-03] MEDS: PRILOSEC PO SCH (06:04)
[2019-05-03] MEDS: HUMULIN R SUBQ SCH ×4 (06:51→22:44)
[2019-05-03 06:54] LABS: BASO# 0.01 X1000 (0.0-0.2); BASO% 0.5 % (0.0-0.8); EOS# 0.08 X1000 (0.0-0.7); EOS% 4.3 % (0.0-10.0); HEMATOCRIT 26.1 % (42.0-52.0); HEMOGLOBIN 8.2 g/dL (14.0-18.0); IMM GRAN# 0.03 X1000 (0.0-0.04); IMM GRAN% 1.6 % (0.0-0.5); LYMPH# 0.29 X1000 (1.2-3.4); LYMPH% 15.6 % (20.5-51.1); MCH 28.8 PG (27-31); MCHC 31.4 g/dL (33-37); MCV 91.6 FL (81-99); MONO# 0.15 X1000 (0.11-0.59); MONO% 8.1 % (1.7-9.3); MPV 10.6 FL (7.4-10.4); NEUT% 69.9 % (42.2-75.2); PLT 107 X1000 (130-400); RBC 2.85 XMIL (4.7-6.1); RDW 15.4 % (11.5-14.5); WBC 1.86 X1000 (4.8-10.8)
[2019-05-03 07:35] LABS: CALCIUM 8.6 mg/dL (8.8-10.2); CREATININE 3.1 mg/dL (0.7-1.2); POTASSIUM 4.2 mmol/L (3.5-5.1)
[2019-05-03] MEDS: D5 NS 1,000 ML IV SCH ×2 (08:31→21:15)
[2019-05-03] MEDS: COLACE PO SCH ×3 (08:32→22:45)
[2019-05-03] MEDS: TRICOR PO SCH (08:33)
[2019-05-03] MEDS: NEURONTIN PO SCH ×2 (08:33→22:43)
[2019-05-03] MEDS: PROSCAR PO SCH (08:33)
[2019-05-03] MEDS: FLOMAX PO SCH ×2 (08:33→22:43)
[2019-05-03] MEDS: MIRALAX PO SCH ×2 (08:33→08:36)
--- NOTE | 2019-05-03 10:26 | PROGRESS NOTE ---
DATE: 05/03/2019 SUBJECTIVE: Mr. Good was admitted to [facility] with acute renal failure superimposed on chronic renal failure due to right ureteral obstruction. He continues with good urine output. He had 2900 mL of urine output yesterday. Renal function is continuing to improve slowly. His BUN and creatinine were 65 and 3.1 this morning. 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 We switched him to D 5 normal saline. His blood sugars are ranging from 160 to 246. He denies any polyuria, polydipsia or episodes of symptomatic hypoglycemia. He is still neutropenic. Blood cultures are negative. A urine culture is negative. He is not running any fever. One wound culture grew out diphtheroids. I suspect that he had systemic inflammatory response syndrome. He had a white count less than 4000. He did have a heart rate greater than 90. He had a respiratory rate of 26. There is not an obvious source of infection. We will continue the Zosyn until he is no longer neutropenic. We will continue to hold the Revlimid. DISCHARGE PLANNING: We will consult physical therapy to see the patient. We will consult [facility] for home health referral. cc: Arsh Brock MD
--- NOTE | 2019-05-03 13:49 | NEPHROLOGY PROGRESS NOTE ---
DATE: 05/03/2019 SUBJECTIVE: Patient is sitting up in bed. He is feeling better. He has been able to eat. OBJECTIVE: Vital Signs: Temperature 97.7 degrees, pulse 92, respiratory rate 20, blood pressure 118/45. Intake 3.5 L. Output 2.9 L. PHYSICAL EXAMINATION: General: Elderly gentleman sitting up in bed. He is awake and alert. He does not appear in distress. HEENT: Normocephalic, atraumatic. His pupils are reactive. Neck: Supple without JVD. Cardiovascular: Reveals a regular rate and rhythm without murmur. Pulmonary: He is clear bilaterally with equal excursion. No increased work of breathing. Abdomen: Soft, with positive bowel sounds. : Vee catheter, urine clear and yellow. Extremities: 2+ edema with chronic venous stasis changes noted bilateral lower extremities. Integumentary: Skin is warm and dry otherwise. LAB DATA: Hemoglobin 8.2, potassium 4.2, creatinine 3.1 (3.7), BUN 65 (8.1). ASSESSMENT AND PLAN: Acute kidney injury secondary to acute hydronephrosis. The patient has had continued improvement with renal function. His urine output has been excellent. No indications for intervention otherwise. Will continue to follow him while he is in the hospital. The patient will need to follow up with us in the office as an outpatient after discharge. I understand there is some discussion as far as him going to rehab. If that is the case we would extend his follow up until after he comes home from rehab and is ambulatory. Dictated by EDMUND Vargas for Tico Javier MD cc: MD Arsh Adams MD
[2019-05-03] MEDS: PRAVACHOL PO SCH (22:43)
[2019-05-04] MEDS: ZOSYN 2.25 GM in NS 50 ML IV SCH (03:25)
[2019-05-04] MEDS: NORCO-10 PO PRN (03:26)
[2019-05-04] MEDS: D5 NS 1,000 ML IV SCH ×2 (06:42→17:45)
[2019-05-04] MEDS: HUMULIN R SUBQ SCH ×3 (06:59→21:50)
[2019-05-04] MEDS: LINZESS PO SCH (07:08)
[2019-05-04] MEDS: PRILOSEC PO SCH (07:08)
[2019-05-04 07:20] LABS: BASO# 0.01 X1000 (0.0-0.2); BASO% 0.3 % (0.0-0.8); EOS# 0.11 X1000 (0.0-0.7); EOS% 3.4 % (0.0-10.0); HEMATOCRIT 27.1 % (42.0-52.0); HEMOGLOBIN 8.4 g/dL (14.0-18.0); IMM GRAN# 0.07 X1000 (0.0-0.04); IMM GRAN% 2.2 % (0.0-0.5); LYMPH# 0.36 X1000 (1.2-3.4); LYMPH% 11.3 % (20.5-51.1); MCH 28.9 PG (27-31); MCV 93.1 FL (81-99); MONO% 9.4 % (1.7-9.3); MPV 10.5 FL (7.4-10.4); NEUT# 2.34 X1000 (1.4-6.5); NEUT% 73.4 % (42.2-75.2); PLT 120 X1000 (130-400); RBC 2.91 XMIL (4.7-6.1); RDW 15.7 % (11.5-14.5); WBC 3.19 X1000 (4.8-10.8)
[2019-05-04 07:23] LABS: CALCIUM 8.9 mg/dL (8.8-10.2); CREATININE 2.6 mg/dL (0.7-1.2); POTASSIUM 3.9 mmol/L (3.5-5.1)
[2019-05-04] MEDS: MIRALAX PO SCH (10:24)
[2019-05-04] MEDS: PROSCAR PO SCH (10:26)
[2019-05-04] MEDS: TRICOR PO SCH (10:27)
[2019-05-04] MEDS: COLACE PO SCH (10:27)
[2019-05-04] MEDS: NEURONTIN PO SCH ×2 (10:27→21:52)
[2019-05-04] MEDS: FLOMAX PO SCH ×2 (10:27→21:52)
--- NOTE | 2019-05-04 10:50 | PROGRESS NOTE ---
DATE: 05/04/2019 SUBJECTIVE: Mr. Good was admitted to [facility] with acute renal failure superimposed on chronic renal failure due to ureteral obstruction and hydronephrosis. Renal function continues to improve. His BUN and creatinine were 51 and 2.6 this morning. He continues with good urine output. Blood pressure is stable. He denies any chest pain, palpitations, or anginal equivalents. He is making slow progress with physical therapy. He required moderate assistance with sitting to standing. He had minimal assistance with a front wheeled walker. OBJECTIVE: Temperature 97.6 degrees, pulse 97, respirations 16, BP 122/49. Cardiovascular: Regular rate and rhythm. Lungs: Clear. Abdomen: Soft, nontender, with active bowel sounds. ASSESSMENT AND PLAN: 1. Acute renal failure superimposed on chronic renal failure due to right ureteral obstruction and hydronephrosis. Renal function continues to improve with good urine output. I am going to stop the fluids today. I will recheck a BMP in the morning. 2. Type 2 pjg-jwtekhj-jbrdnvouk diabetes mellitus. He has been having persistent hypoglycemia secondary to sulfonylurea poisoning. Blood sugars are consistently in the range of 140 to 170. I will stop the D5 normal saline we will continue pattern sugars and a Humulin R sliding scale. I will hold his diabetic medicines. 3. Systemic inflammatory response syndrome. His white count has normalized. Cultures are negative. He is no longer neutropenic. We will stop the antibiotics. We will continue to hold the Revlimid. cc: Arsh Brock MD
--- NOTE | 2019-05-04 10:52 | PROGRESS NOTE ---
DATE: 05/03/2019 Mr. Good was admitted to [facility] with acute renal failure superimposed on chronic renal failure. He continues with good urine output. Urine output was 2900 mL yesterday. His BUN and creatinine were 65 and 3.1 this morning. 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 We had switched him to D5 normal saline and his sugars are ranging from 162 to 246. He denies any polyuria, polydipsia, or episodes of symptomatic hypoglycemia. He is still neutropenic. Blood cultures are negative. Urine culture is negative. He is not running fever. PHYSICAL EXAMINATION: He his afebrile, pulse 83, respiratory rate 14, BP 112/44. CV: Regular rate and rhythm. Lungs: Clear. Abdomen: Soft, nontender, with active bowel sounds. ASSESSMENT AND PLAN: 1. Acute renal failure superimposed on chronic renal failure. Kidney function is improving. Urine output is good. We will continue fluids and recheck a BMP in the morning. 2. Type 2 bvy-xozpwnp-nufrcrpyk diabetes mellitus. 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 We will continue D5 normal saline and continue to hold his medications. 3. Neutropenia. We will continue his antibiotics until he is no longer neutropenic. We will continue to hold Revlimid. cc: Arsh Brock MD
[2019-05-04] MEDS: PRAVACHOL PO SCH (21:52)
[2019-05-04] MEDS ORDERED: D50W SYRINGE IV ONE (22:00)
[2019-05-05] MEDS: COLACE PO SCH ×3 (00:33→22:01)
[2019-05-05] MEDS: D5 NS 1,000 ML IV SCH (02:08)
[2019-05-05] MEDS: NORCO-10 PO PRN ×3 (03:18→22:01)
[2019-05-05] MEDS: HUMULIN R SUBQ SCH ×4 (06:45→21:57)
[2019-05-05] MEDS: PRILOSEC PO SCH (06:56)
[2019-05-05] MEDS ORDERED: D50W SYRINGE IV ONE (07:00)
[2019-05-05 07:27] LABS: CALCIUM 9.3 mg/dL (8.8-10.2); CREATININE 2.7 mg/dL (0.7-1.2); POTASSIUM 4.5 mmol/L (3.5-5.1)
[2019-05-05] MEDS: LINZESS PO SCH (07:51)
--- NOTE | 2019-05-05 08:30 | PROGRESS NOTE ---
DATE: 05/05/2019 SUBJECTIVE: Mr. Good has a history of acute on chronic renal failure secondary to ureteral obstruction. Renal function continues to improve. His BUN and creatinine were 47 and 2.7 this morning. He has good urine output. He continues with persistent hypoglycemia, although he remains clinically asymptomatic. We felt that he most likely had sulfonylurea poisoning in the face of acute renal failure. He is making good progress with physical therapy. OBJECTIVE: Temperature is 98.6, pulse 94, respirations 24, blood pressure 125/51. Cardiovascular: Regular rate and rhythm. Lungs: Clear. Abdomen: Soft and nontender with active bowel sounds. ASSESSMENT AND PLAN: 1. Acute renal failure superimposed on chronic renal failure. We will continue to push fluids and follow a BMP. He has good urine output. 2. Hypoglycemia. He is not symptomatic. I suspect he still has some degree of sulfonylurea poisoning. I have encouraged him to eat 3 good meals daily with in between meal snacks and a snack at bedtime. We will continue to hold his diabetic medications. 3. Physical debility. We will reassess him after physical therapy today. I believe that he would benefit from home health. I would like to see social workers assess home needs. I would like nursing staff to monitor his medications and efficacy of those medicines. I believe he would benefit from physical therapy given that he is undergoing active therapy for underlying lymphoma. I do not want him to be hospitalized at a local skilled nursing for inhouse rehab as he is at higher risk for developing infection. cc: Arsh Brock MD
[2019-05-05] MEDS: PROSCAR PO SCH (08:57)
[2019-05-05] MEDS: FLOMAX PO SCH ×2 (08:57→22:01)
[2019-05-05] MEDS: NEURONTIN PO SCH ×2 (08:57→22:01)
[2019-05-05] MEDS: MIRALAX PO SCH (08:59)
[2019-05-05] MEDS: TRICOR PO SCH (09:07)
--- NOTE | 2019-05-05 13:49 | NEPHROLOGY PROGRESS NOTE ---
DATE: 05/05/2019 TIME SEEN: 0700 SUBJECTIVE: Mr. Good is resting quietly in bed. His is at the bedside. He is sitting up, eating a little bit of breakfast. He has no complaints. OBJECTIVE: Vital signs: Temperature is 98.4, blood pressure 134/57, heart rate 88, respirations 18. He is on room air, and last recorded saturation is 98%. He has had 400 in and 1450 out to Vee catheter. General: This is a 74-year-old elderly male. He is resting quietly in bed. He is sitting up and eating some peanut butter and crackers. He appears chronically ill, no acute distress. Skin is warm and dry. HEENT: Normocephalic and atraumatic. Conjunctivae pale. PERRL. Mucous membranes are dry. Neck is supple. trachea midline. No evidence of JVD. Cardiovascular: He is regular rate and rhythm without murmur or gallop. Lungs: Clear to auscultation bilaterally. Diminished breath sounds in posterior bases. Remains on room air. Equal excursion. Abdomen: Large, round, soft, nontender. Positive bowel sounds. Genitourinary: Not inspected. The patient has a Vee catheter in place with adequate urine output documented. Extremities: Continues with 2 to 3+ edema up into the mid high and thigh region. He does have a woody appearance to his lower legs secondary to chronic venostasis. He does state that he has chronic venostasis with edema secondary to lymphedema. Integumentary: As noted above. Skin is warm and dry. Neurologic: Alert and oriented x2. DIAGNOSTIC DATA: Sodium is 141, potassium 4.5, chloride 108, CO2 is 20, BUN is 47, creatinine 2.7, glucose 44. Now receiving peanut butter and crackers. His anion gap is 13. His calcium is 9.3. Previous hemoglobin was 8.4. ASSESSMENT AND PLAN: 1. Acute kidney injury secondary to acute hydronephrosis. The patient's BUN and creatinine have continued to slowly improve over the last several days. It appears to have stabilized at 2.6 to 2.7 in the last 48 hours. Adequate urine output. No indication for dialysis intervention. 2. Electrolytes and acid base balance. These are acceptable. 3. Anemia. This remains low but stable. 4. Possible discharge. We have requested that the patient follow up in our office in 2 to 3 weeks post rehab with labs. I would like to thank you for allowing us to follow with this patient. Dictated by EDMUND Dey for Tico Javier MD Face to face encounter, data reviewed, discussed with Reinaldo Peacock on 05/05/19. I agree with the above assessment and plan of care. cc: EDMUND Dey MD M. Neel Roberts, MD [facility]ITAL[facility]is[facility]
[2019-05-05] MEDS: PRAVACHOL PO SCH (22:01)
[2019-05-06] MEDS: D5 NS 1,000 ML IV SCH ×2 (00:43→06:33)
[2019-05-06] MEDS: NORCO-10 PO PRN ×2 (03:27→12:51)
[2019-05-06 06:28] LABS: ALBUMIN 2.6 g/dL (3.5-5.0); CALCIUM 9.4 mg/dL (8.8-10.2); CREATININE 2.3 mg/dL (0.7-1.2); PHOSPHORUS 3.4 mg/dL (2.7-4.5); POTASSIUM 4.2 mmol/L (3.5-5.1)
[2019-05-06] MEDS: PRILOSEC PO SCH (06:34)
[2019-05-06] MEDS: LINZESS PO SCH (06:34)
[2019-05-06] MEDS: HUMULIN R SUBQ SCH (06:40)
[2019-05-06 07:35] VITALS: BP 127/50
[2019-05-06] MEDS: COLACE PO SCH (09:13)
[2019-05-06] MEDS: NEURONTIN PO SCH (09:13)
[2019-05-06] MEDS: FLOMAX PO SCH (09:14)
[2019-05-06] MEDS: MIRALAX PO SCH (09:14)
[2019-05-06] MEDS: PROSCAR PO SCH (09:14)
[2019-05-06] MEDS: TRICOR PO SCH (09:14)
--- NOTE | 2019-05-06 09:41 | NEPHROLOGY PROGRESS NOTE ---
DATE: 05/06/2019 SUBJECTIVE: He is asleep, but easily arousable. He is receiving IV fluids because of hypoglycemia overnight. He denies shortness of breath. OBJECTIVE: Vital Signs: Blood pressure 136/49, heart rate 90, respirations 20, afebrile. Intake 2.5 L; output 2.1 L. General: On physical examination, no acute distress. Skin: Warm and dry. HEENT: Conjunctivae are pink. Oropharynx is moist. Neck: Neck veins are 6 cm. Heart: Regular. No gallops. Lungs: Equal. No crackles or wheezes. Extremities: Have 3+ edema. No clubbing or cyanosis. IMPRESSION: Acute kidney injury secondary to obstruction. Baseline creatinine likely around 1.7, 2.3 today. Excellent urine output. From the Nephrology perspective, his intravenous fluids can be discontinued. He does have severe edema, but this is related to venous insufficiency and lymphedema. cc: MD Arsh Adams MD
--- NOTE | 2019-05-06 17:04 | DISCHARGE SUMMARY ---
ADMISSION DATE: 04/30/2019 DISCHARGE DATE: 05/06/2019 DISCHARGE DIAGNOSES: 1. Acute renal failure superimposed on stage 3 chronic renal insufficiency. 2. Acute ureteral obstruction on the right. 3. Hydronephrosis due to obstruction of the ureter. 4. Solitary kidney. 5. Essential hypertension. 6. 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 7. Paroxysmal atrial fibrillation. 8. Mixed hyperlipidemia. 9. Lymphoma. 10. Benign prostatic hypertrophy with lower urinary tract symptoms. 11. Lumbar spinal stenosis of the lumbar region with neurogenic claudication. 12. Adult onset persistent hyperglycemia. 13. Poisoning by oral sulfonylurea derivative (Amaryl). DISCHARGE INSTRUCTIONS: 1. Return to clinic in 1 week to see me Dr. Shant Brock. 2. Activity as tolerated 3. 1800 calorie ADA diet. 4. Medications Colace 100 mg b.i.d., MiraLAX 17 g in 8 ounces of water daily, Proscar 5 mg daily, gabapentin 300 mg b.i.d., Lopressor 50 mg daily, pravastatin 40 mg at bedtime, Xarelto 20 mg daily, omeprazole 40 mg daily, Flomax 0.4 mg b.i.d., [place] 5 one q.6 hours p.r.n. pain. This is a well-developed, well-nourished 74-year-old gentleman no apparent distress. He is afebrile. Vital signs are stable. CV: Regular rate and rhythm. Lungs: Clear. Abdomen: Soft, nontender with active bowel sounds. Mr. Manuel Good was admitted to [facility] with acute renal failure superimposed on chronic renal failure secondary to right-sided ureteral obstruction with hydronephrosis. He was taken to the OR emergently where Dr. Miranda performed cystoscopy, right retrograde pyelogram and right ureteral stent exchange. The patient was rehydrated with normal saline. Over the course of his hospitalization his renal function improved significantly. His BUN and creatinine dropped from 19 and 4.3 to 47 and 2.7. At discharge he had good urine output. He was voiding freely without a Vee catheter. I will recheck a BMP in 1 week. The patient does have lymphoma. He has received multiple chemotherapy treatments at [facility]. He has been taking oral Revlimid. He became neutropenic. We held the Revlimid. We treated him with broad-spectrum antibiotics until the neutropenia resolved. Urine and blood cultures were negative. We did type, crossmatch and transfuse 2 units of packed red blood cells due to the leukopenia and suppressed counts due to the Revlimid. He does have a longstanding history of type 2 noninsulin-dependent diabetes mellitus. He had been taking Amaryl through the day of admission. He had persistent hypoglycemia. We switched him to D5 normal saline. We held his blood sugar medications. He still had periods of hypoglycemia but did not have symptoms with these episodes. We felt that he had sulfonylurea poisoning. I encouraged him to eat breakfast, lunch, dinner with in between meal snacks and an evening snack. We will continue to hold diabetic medications. He does have a history of paroxysmal atrial fibrillation. He remained in normal sinus rhythm. Heart rate was stable on metoprolol. He had no bleeding complications secondary to the Xarelto. Because of generalized debility and weakness we felt that he would benefit from home health. Given that he is undergoing active treatment for lymphoma we did not feel he was a great candidate for in-house rehab. We have made arrangements for him to have home health with a administrator social welfare, nursing evaluation and physical therapy. It is difficult for him to leave the house without extraordinary effort. cc: Arsh Brock MD
--- NOTE | 2019-05-07 13:25 | HEMO/ONC PROGRESS NOTE ---
DATE: 05/05/2019 HISTORY OF PRESENT ILLNESS: Mr. Good reports improved urine output over the weekend. He denies any fevers, chills overnight. He continues to have drainage from his legs bilaterally. PHYSICAL EXAMINATION: Temperature 98.6 degrees, pulse 85, respiratory rate 24, blood pressure 125/51.General: This is an overweight, well-developed, well-nourished, man in no acute distress. He is accompanied by his and his [id number] during consultation today. Eyes: Sclerae anicteric. Conjunctiva pale. Cardiovascular: Regular rate and rhythm. Normal S1, S2. No murmurs, rubs, or gallops. Pulmonary: Decreased breath sounds at bilateral bases. No wheezes, rales, or rhonchi. Gastrointestinal: Abdomen is obese, but soft, nontender, nondistended with normoactive bowel sounds. Extremities: 3+ pitting edema to bilateral thighs with serous drainage from bilateral lower extremities noted. Neurological: He is alert and oriented x3 with no focal deficits. LABORATORIES: Creatinine 2.7. Most recent CBC: White count 3.19, hemoglobin 8.4, platelet count 120,000. ASSESSMENT AND PLAN: 1. Diffuse large B-cell lymphoma, double-hit: He has refractory disease. He has obvious clinical progression on current therapy with Revlimid and Gazyva. I have discussed his case with Dr. York at [facility], who agrees that there are no other reasonable options for systemic treatment for him, given his declining performance status and his organ dysfunction. I have discussed at length with the patient recommendations for hospice care. He is going home from the hospital on home health at this time. He will call our clinic at any time when he is ready to consider hospice care, and we will set that up. 2. Renal failure: Creatinine is improved. He is status post stent placement. Urine output has picked up. Continue to monitor clinically. His Vee catheter has been removed. 3. Cytopenias: Treatment induced and disease related as well. His counts have improved off Revlimid. He will discontinue Revlimid at this time. COMPLEXITY: I spent more than 60 minutes in patient care with more than 30 minutes of face-to- face consultation time with the patient, counseling him on end of life care and hospice support. cc: MD Arsh Gruber MD
--- NOTE | 2019-05-07 19:24 | PROVIDER DOCUMENTATION ---
This chart was entered by Sheila Joy Scribe, acting as scribe for Kevin Malloy MD. HPI-Male Problem - General Stated Complaint: GENERAL WEAKNESS/LEG WOUNDS Time Seen by Provider: 04/30/19 13:37 Source: patient Allergies/Adverse Reactions: Patient Allergies Allergy/AdvReac Type Severity Reaction Status Date / Time fexofenadine HCl * Allergy Mild RENAL Verified 12/21/18 17:06 [From [facility]] FAILURE Home Medications: Home Medication List Medication Instructions Recorded Confirmed Last Taken Type Gabapentin 300 mg PO BID 09/18/17 04/30/19 08/03/18 08:30 History Metoprolol [Lopressor] 50 mg PO DAILY 09/18/17 04/30/19 08/03/18 08:30 History PRAVAstatin [Pravachol] 40 mg PO DAILY 09/18/17 04/30/19 08/02/18 19:00 History Rivaroxaban [Xarelto] 20 mg PO DAILY 09/18/17 04/30/19 08/02/18 19:00 History Fenofibrate Nanocrystallized 145 mg PO DAILY 12/21/18 04/30/19 Unknown History [Fenofibrate] Omeprazole [Prilosec] 40 mg PO DAILY capsule 12/25/18 04/30/19 Unknown Rx Tamsulosin [Flomax] 0.4 mg PO BID #60 cap 12/25/18 04/30/19 Unknown Rx Docusate Sodium [Colace] 100 mg PO BID cap 05/06/19 Unknown Rx Finasteride [Proscar] 5 mg PO DAILY tab 05/06/19 Unknown Rx Hydrocodone/APAP 5 mg/325 mg 1 ea PO Q6H PRN PRN #30 tab 05/06/19 Unknown Rx [Hannah-5] Polyethylene Glycol 3350 [Miralax] 17 gm PO DAILY powder, packet 05/06/19 Unknown Rx - History of Present Illness-Male Nature of Presenting Problem: Patient is a 74 year old male who presents to the ED via EMS with suprapubic abdominal pain and urinary retention that started yesterday. Patient states having a stent placed in his right kidney [place] [address] Miranda. Reports he is currently on chemo for lymphoma. Location of Complaint: reports: suprapubic Radiation: reports: none Quality of Pain: reports: fullness Severity in ED: reports: mild Onset/Duration: reports: 24 hours ago Timing: reports: still present Context/Activities at Onset: reports: light activity Urinary Symptoms: reports: retention Associated Symptoms: reports: denies symptoms Similar Symptoms Previously?: Yes Recently seen or treated by another doctor?: No Review of Systems - Adult - REVIEW OF SYSTEMS - ADULT Constitutional: reports: no symptoms reported. denies: chills, fever, fatique Eyes: reports: no symptoms reported Ears, Nose, Mouth & Throat: reports: no symptoms reported Cardiovascular: reports: no symptoms reported Respiratory: reports: no symptoms reported Gastrointestinal: reports: see HPI, abdominal pain (suprapubic). denies: diarrhea, nausea, vomiting Genitourinary: reports: see HPI, urinary retention. denies: dysuria, hematuria Musculoskeletal: reports: no symptoms reported Integumentary: reports: no symptoms reported Neurological: reports: no symptoms reported Psychiatric: reports: no symptoms reported Endocrine: reports: no symptoms reported Hematologic/Lymphatic: reports: no symptoms reported Allergic/Immunologic: reports: no symptoms reported All Other Systems: Reviewed and Negative Past History - Adult - PAST MEDICAL HISTORY-ADULT Review of Records: reports: Old Records Reviewed, Nursing Assessment Review, Medications Reviewed, Social history reviewed & non-contributory. Major Childhood Illnesses: reports: denies history Cardiovascular: reports: A-Fib, HTN Respiratory: reports: sleep apnea Gastrointestinal: reports: denies history Obstetrical/Gynecological: reports: denies history Genitourinary: reports: other (enlarged prostate) Musculoskeletal: reports: denies history Neurological: reports: denies history Endocrine/Immune: reports: Diabetes, Lymphoma Other Conditions: reports: cataract/glaucoma, other (DVT) - PRIOR SURGERIES/PROCEDURES Surgical/Procedure History: reports: cholecystectomy, back/neck (back), other (L nephrectomy, cataract removal) - IMMUNIZATION STATUS Childhood Immunizations: See Nurse Assessment Flu Vaccine: See Nurse Assessment - FAMILY HISTORY Family History: reviewed, not pertinent - SOCIAL HISTORY Smoking: denies Substance Use: denies Physical Exam-General - PHYSICAL EXAM-ADULT Initial Vital Signs Reviewed: Yes - CONSTITUTIONAL General Appearance: alert, mild distress. negative: lethargic, slow to respond - RESPIRATORY Respiratory: chest non-tender, lungs clear, normal breath sounds. negative: crackles, rhonchi, stridor - CARDIOVASCULAR Cardiovascular: normal peripheral pulses, regular rate, rhythm. negative: tachycardia, systolic murmur - GASTROINTESTINAL (ABDOMEN) Abdominal Exam: normal bowel sounds, non tender, soft. negative: guarding, rebound - GENITOURINARY Male Genitalia: deferred - MUSCULOSKELETAL Extremity: normal range of motion, non-tender. negative: deformity - SKIN Integumentary: normal color, normal turgor, warm/dry. negative: cyanosis, ecchymosis, erythema, jaundice - NEUROLOGIC Neurologic: grossly normal. negative: aphasia, facial droop - PSYCHIATRIC Psych/Mental Status: normal mood/affect, oriented x 3. negative: anxious Progress - PLAN OF CARE/RESULTS Progress/Plan/Lab Results: Orders Category Date Time Status Admit - [facility] Routine AdmDCTranf 04/30/19 16:54 Active Activity - Up with Assistance ORDERED Care 04/30/19 16:54 Active DVT/PE Risk Assess/Protocol [QM] ORDERED Care 04/30/19 16:54 Active Intake and Output-Strict ORDERED Care 04/30/19 16:55 Active Vital Signs Order Q 8-HR ASSESS Care 04/30/19 16:54 Active CHEST-PORTABLE [RAD] Routine Exams 04/30/19 06:00 Completed BASIC METABOLIC PANEL [CHEM] Routine Lab 05/01/19 06:20 Completed BLOOD CULTURE [BLDCUL] Routine Lab 05/01/19 06:20 Completed BMP [BASIC METABOLIC PANEL] [CHEM] Stat Lab 04/30/19 14:19 Completed CBC WITH DIFF [HEME] Routine Lab 05/01/19 06:20 Completed CBC WITH ELECTRONIC DIFF [HEME] Stat Lab 04/30/19 14:19 Completed UA NIMS W/REFLEX CULT [URINALYSIS] Routine Lab 04/30/19 21:34 Completed URINE CULTURE [RM] Routine Lab 05/04/19 01:24 Completed 0.9% Sodium Chloride Inj [Ns] 1,000 ml Med 04/30/19 17:00 Discontinued IV 75 mls/hr Acetaminophen [Tylenol] Med 04/30/19 16:54 Discontinued 650 mg PO PRN PRN Cefazolin 2 gm/D5w [Kefzol 2 gm/D5w] Med 04/30/19 17:12 Discontinued 2 gm in 50 ml .ROUTE As directed Dexamethasone [Decadron] Med 04/30/19 17:31 Discontinued 4 mg .ROUTE .STK-MED ONE Fenofibrate [Tricor] Med 05/01/19 09:00 Discontinued 145 mg PO DAILY Fentanyl Med 04/30/19 17:02 Discontinued 100 microgm .ROUTE .STK-MED ONE Finasteride [Proscar] Med 05/01/19 09:00 Discontinued 5 mg PO DAILY Gabapentin [Neurontin] Med 04/30/19 21:00 Discontinued 300 mg PO BID Glycopyrrolate [Robinul] Med 04/30/19 16:30 Discontinued 0.2 mg .ROUTE .STK-MED ONE Insulin Human Regular [Humulin R] Med 04/30/19 21:00 Discontinued See Protocol SUBQ 0700,1100,1600,2100 Lidocaine 2% Pf [Xylocaine-Mpf 2%] Med 04/30/19 16:30 Discontinued 5 ml .ROUTE .STK-MED ONE Metoprolol [Lopressor] Med 05/01/19 09:00 Discontinued 50 mg PO DAILY Morphine Med 04/30/19 15:25 Discontinued 4 mg IV NOW ONE Omeprazole [Prilosec] Med 05/01/19 07:00 Discontinued 40 mg PO ACB Ondansetron [Zofran] Med 04/30/19 17:31 Discontinued 4 mg .ROUTE .STK-MED ONE Ondansetron [Zofran] Med 04/30/19 15:25 Discontinued 4 mg IV NOW ONE PRAVAstatin [Pravachol] Med 05/01/19 21:00 Discontinued 40 mg PO QPM Promethazine [Phenergan] Med 04/30/19 16:54 Discontinued 12.5 mg IV Q6H PRN PRN Propofol [Diprivan 1%] Med 04/30/19 16:30 Discontinued 200 mg .ROUTE .STK-MED ONE Sodium Chloride 0.9% Med 04/30/19 16:54 Discontinued 10 ml INJ PRN PRN Tamsulosin [Flomax] Med 04/30/19 21:00 Discontinued 0.4 mg PO BID Consent for Surgery Routine Oth 04/30/19 16:26 Ordered Transfer/Admit Order [TRANSFER] Routine Transfer 04/30/19 16:53 Completed Result Diagrams: 05/04/19 06:13 05/06/19 05:38 - CONSULTS/PCP/HOSPITALIST Notification #1 *Consult/PCP/Hospitalist*: Dr. Miranda Time Discussed: 15:31 Reason/Comments: Dr. Malloy consulted with Dr. Miranda about patient. Consult Disposition: other (Dr. Miranda stated order a renal US.) #2 Consult: Dr. Miranda Time Discussed: 16:24 Reason/Comments: Dr. Malloy consulted with Dr. Miranda about patient. Consult Disposition: other (Dr. Miranda stated he consulted with patient about replacing stent. Dr. Miranda states to cancel the US and have the patient admitted to his PCP.) #3 Consult: Dr. Brokc Time Discussed: 16:30 Reason/Comments: Dr. Malloy consulted with Dr. Brock about patient. Consult Disposition: Will see in ED, Admit Departure - Departure Date of Disposition Decision: 04/30/19 Time of Disposition Decision: 16:32 DIAGNOSIS: Urinary retention Acute renal failure superimposed on stage 3 chronic kidney disease Qualifiers: Acute renal failure type: unspecified Qualified Code(s): N17.9 - Acute kidney failure, unspecified; N18.3 - Chronic kidney disease, stage 3 (moderate) Disposition: ADMITTED INPATIENT 09 Certified Medical Emergency: Emergent Condition: Serious - Critical Care Note This patient required my direct & personal management of CC.: No Attestation - Physician/ PRICILLA Attestation The physician spent face to face time with patient:: Yes Advanced Practice Provider documentation review:: Supervising physician onsite and consulted in the evaluation and care of this patient. The physician did have a face to face encounter with the patient. This chart was documented by the indicated scribe, (Sheila Joy Scribe) and accurately reflects the services I performed and decisions made by , Kevin Malloy MD, as attested by the provider's signature.
== END 2019-05-06 13:10 | disposition home health service (06) | DRG 659 ==
LOC: SUPCPDRO → ED 13:27 → 4N 17:36
PROVIDERS: ADMIT Internal Medicine; ATTEND Internal Medicine
CPT/HCPCS: 36430; 71010; 71045; 74420; 80048; 80069; 81001; 82270; 82948; 83605; 85025; 86850; 86900; 86901; 86920; 87040; 87070; 87088; 94761; 94799; 97110; 97161; 97530; 99285; A9270; J0690; J1100; J1956; J2270; J2405; J2543; J3010; J3370; J7030; J7042; P9016; S0138; XXXXX